=== PATIENT | female | born 1945 | race Caucasian/White ===

== ENCOUNTER 2023-08-02 20:29 | Inpatient (IN) | payer OTHER, SELFPAY ==
[2023-08-02 14:27] VITALS: BMI 18.5
[2023-08-02 14:28] VITALS: BP 127/74
[2023-08-02 14:49] LABS: % Basophils 0.4 % (0-2); % Eosinophils 0.4 % (0-6); % Immature Granulocytes 0.4 % (0-0.5); % Lymphocytes 9.2 % (20.5-51.1); % Monocytes 11.2 % (1.7-9.3); % Neutrophils 78.4 % (42.2-75.2); Absolute Eosinophils 0.1 10^3/uL (0-0.7); Absolute Immature Granulocytes 0.1 10^3/uL (0-0.05); Absolute Monocytes 1.3 10^3/uL (0.1-0.6); Absolute Neutrophils 8.9 10^3/uL (1.4-6.5); Hematocrit 36.1 % (37.0-47.0); Hemoglobin 13.2 g/dL (12.0-16.0); Mean Corp Hgb Conc. 36.6 g/dL (33.0-37.0); Mean Corpuscular Hgb 31.9 pg (27.0-31.0); Mean Corpuscular Volume 87.2 fL (81.0-99.0); Mean Platelet Volume 9.2 fL (7.4-10.4); Nucleated Red Blood Cells % 0 %; Platelet Count 400 10^3/uL (130-400); Red Blood Cell Count 4.14 10^6/uL (4.20-5.40); Red Cell Dist. Width 12.6 % (11.5-14.5); White Blood Cell Count 11.3 10^3/uL (4.8-10.8)
[2023-08-02 15:10] LABS: ALT (SGPT) 12 U/L (0-35); AST (SGOT) 22 U/L (14-36); Alkaline Phosphatase 71 U/L (38-126); Blood Urea Nitrogen 16 mg/dl (7-17); Calcium 9.2 mg/dl (8.4-10.2); Carbon Dioxide 25 mmol/L (22-30); Chloride 93 mmol/L (98-107); Glucose 111 mg/dl (70-99); Lipase 70 U/L (23-300); Potassium 3.3 mmol/L (3.5-5.1); Sodium 126 mmol/L (135-145); Total Bilirubin 1.6 mg/dl (0.2-1.3); Total Protein 6.4 g/dl (6.3-8.2); eGFR > 60.00
--- NOTE | 2023-08-02 15:38 | ED.GENMED ---
History of Present Illness
General
Chief Complaint: Abdominal Pain
Source: patient
Exam Limitations: none
Time Seen by Provider: 08/02/23 15:25
Nursing documentation reviewed up to this point in time: agreed with
Travel History
Have you had any contact with someone who has COVID-19?: No
Do you have any symptoms of coronavirus? Fever > 100 degrees, chills, cough, shortness of breath, sore throat, loss of taste or smell, muscle aches, or headache?: No
History of Present Illness
History of Present Illness:
78-year-old female with past history of A-fib not anticoagulated, hypertension hyperlipidemia presenting to the emergency department today with concerns of lack of bowel movements over the past week and abdominal distention and pain worsening over
the past week. Has had nausea and difficulty tolerating anything by mouth other than some liquids. Denies any chest pain shortness of breath vomiting or changes in urination.
Past History
Past History
ED Past Medical History: Arrthythmia and HTN
ED Past Surgical History: None
Social History
Tobacco: Non-smoker
Alcohol: Occasional
Drug: None
Personal:
Living: with family (lives with son)
Employment: Retired
Family History
Family History: Other (Noncontributory)
Review of Systems
Review of Systems
Allergies reviewed?: Yes
All Other Systems: ROS reviewed and negative except as documented in HPI and ROS
Phy Exam
Physical Exam
Physical Exam:
GENERAL: Alert , in no apparent distress
EYE: pupils equal and reactive
NECK: Supple, no significant adenopathy.
ENT: o/p clr, mmm.
CARDIAC: Regular rate and rhythm .
LUNGS: Clear breath sounds bilaterally, no acute respiratory distress, no wheezes/rales/rhonchi
ABDOMEN: Distended abdomen mild tenderness to palpation throughout.
NEUROLOGICAL: Alert and oriented, no focal neuro deficits
SKIN: Warm and dry, skin intact.
MUSCULOSKELETAL: No edema, well perfused.
PSYCH: Normal and appropriate interaction.
Course
Orders/Labs/Results
Orders:
Orders
08/02/23 14:32
IV Insert/Care/Rem.- Treatment PRN
08/02/23 14:35
Complete Blood Count/With Diff Urgent
Comprehensive Metabolic Panel Urgent
Lipase Urgent
08/02/23 15:37
Urinalysis Reflex To Culture Urgent
0.9% Sodium Chloride 1000 ml [Nss] 1,000 ml IV BOLUS
Iohexol [Omnipaque] See Protocol PO NOW STA
Ondansetron Injectable [Zofran] 4 mg IV NOW STA
08/02/23 15:38
CT Abd/pel W Iv And Oral Contr Urgent
Comment:
Reason For Exam: diffuse abd pain, no bm x1 week
Abnormal Lab Results
08/02/23
14:35
WBC 11.3 H 10^3/uL
(4.8-10.8)
RBC 4.14 L 10^6/uL
(4.20-5.40)
Hct 36.1 L %
(37.0-47.0)
MCH 31.9 H pg
(27.0-31.0)
Abs Immat Gran (auto) 0.1 H 10^3/uL
(0-0.05)
Absolute Neuts (auto) 8.9 H 10^3/uL
(1.4-6.5)
Absolute Lymphs (auto) 1.0 L 10^3/uL
(1.2-3.4)
Absolute Monos (auto) 1.3 H 10^3/uL
(0.1-0.6)
Neutrophils % 78.4 H %
(42.2-75.2)
Lymphocytes % 9.2 L %
(20.5-51.1)
Monocytes % 11.2 H %
(1.7-9.3)
Sodium 126 L mmol/L
(135-145)
Potassium 3.3 L mmol/L
(3.5-5.1)
Chloride 93 L mmol/L
(98-107)
Glucose 111 H mg/dl
(70-99)
Total Bilirubin 1.6 H mg/dl
(0.2-1.3)
08/02/23 14:35
08/02/23 14:35
Vital Signs
Initial and Last Documented VS:
Initial Vital Signs
Temp Pulse Resp BP Pulse Ox
98.0 F 98 16 127/74 98
08/02/23 14:28 08/02/23 14:28 08/02/23 14:28 08/02/23 14:28 08/02/23 14:28
Last Documented Vital Signs
Temp Pulse Resp BP Pulse Ox
98.0 F 98 16 112/59 93
08/02/23 14:28 08/02/23 14:28 08/02/23 14:28 08/02/23 16:00 08/02/23 16:00
MDM/Problems Addressed
MDM/Problems Addressed:
78-year-old female presenting to the emergency department today with concerns of abdominal distention and lack of bowel movement over the past week and ongoing nausea without vomiting. Here patient is generally well-appearing no acute distress but
does have tenderness throughout the abdomen and distended abdomen. Plan for CT scan for further assessment of possible obstruction.
CT scan showing likely early obstruction plan to admit for further monitoring. Patient additionally had low sodium level on labs additionally will be treated as inpatient. Stable throughout ER stay no vomiting.
*Critical Care Note
Total Time (30-74mins, 75-104mins- exclusive of procedures): Not Applicable
ED Attending Note
-
Portions of this chart may have been created with voice recognition software.� Occasional wrong word or��sound alike� substitutions may have occurred due to the inherent limitations of voice recognition software.
Discharge Plan
Departure
Patient Disposition: Admit
Date of Disposition: 08/02/23
Time of Disposition: 19:24
Admit to: Med/Surg
Admit to doctor: Abhishek
Presentation/result/management discussed w/ accepting MD/DO: Hospitalist
Patient with high blood pressure during this ER visit?: No
Condition: Good
Covid-19: Not Applicable
Discharge Problem:
Bowel obstruction, Hyponatremia
Prescriptions:
No Action
metoprolol succinate 100 MG tablet extended release 24 hr
100 mg PO DAILY
cholecalciferol (vitamin D3) 1,000 UNITS tablet
1,000 units PO DAILY
sennosides-docusate sodium 1 TABLET tablet
1 tab PO BID
losartan 25 MG tablet
25 mg PO DAILY
bisacodyl [Fleet Bisacodyl] 37 ML enema
118 ml [place] DAILYPRN PRN (Reason: constipation)
bisacodyl [OneLAX Bisacodyl] 10 MG suppository
10 mg [place] DAILYPRN PRN (Reason: constipation)
aluminum-magnesium hydroxide 30 ML suspension
15 ml PO PRN PRN (Reason: constipation)
mupirocin 1 APPLIC ointment
1 applic topical BID Qty: 1 0RF
rosuvastatin 5 MG tablet
5 mg PO QPM
Patient Comments:
08/22/21-patient said she sill takes this, tried to call [facility] but on lunch [id number]
acetaminophen 325 MG tablet
650 mg PO Q6HPRN PRN (Reason: mild pain/ fever>100.5F) 0RF
oxycodone-acetaminophen 5 MG/325 MG tablet
1 tab PO Q6HPRN PRN (Reason: knee pain) 2 Days Qty: 8 0RF
Referrals:
NONE,* [Active] -
Interventions
Interventions:
*General Assessment Last Done: 08/02/23 14:28
ED- Fall Risk Assessment Last Done: 08/02/23 16:12
YF-Iwfuan-Ymmamctlll Assessment Last Done: 08/02/23 16:12
[2023-08-02] MEDS: ZOFRAN 4 MG IV (15:45)
[2023-08-02] MEDS: OMNIPAQUE 50 ML PO (15:46)
[2023-08-02] MEDS: NSS 1000 IV (15:48)
[2023-08-02 16:00] VITALS: BP 112/59
[2023-08-02 17:00] VITALS: BP 128/57
[2023-08-02 18:00] VITALS: BP 124/67
--- NOTE | 2023-08-02 19:46 | HPS.HSE ---
Family Physician
-
Family Physician: Paulo Mckeon
Chief Complaint
-
lack of BM
History of Present Illness
78F HX Prx AF on , Not on AC, hypertension pow concerns of lack of bowel movements over the past week and abdominal distention and pain worsening over the past week. Has had nausea and difficulty tolerating anything by mouth other than some
liquids. D
Denies vomiting or changes in urination.
Medical History
Past Medical History
Past Medical History: Reports Arrhythmia (Prx AF ), HTN and Hypercholesterolemia
Past Surgical History: Reports None
Social History
Tobacco: Non-smoker
Alcohol: None
Family History
Family History: Not pertinent
Allergies / Home Medications
Allergies reflects when Allergies were last updated in [facility].
Home Medications with original date entered in [facility]
Allergy/Medication List:
Allergies
Allergy/AdvReac Type Severity Reaction Status Date / Time
No Known Allergies Allergy Verified 11/20/21 06:40
Home Medications
cholecalciferol (vitamin D3) 25 mcg (1,000 unit) tablet 1,000 units PO DAILY Supplement 02/17/21
metoprolol succinate 100 mg tablet,extended release 24 hr 100 mg PO DAILY Heart disease/condition 02/17/21
rosuvastatin 5 mg tablet 5 mg PO QPM High cholesterol 08/22/21
acetaminophen 325 mg tablet 650 mg PO Q6HPRN PRN mild pain/ fever>100.5F 08/25/21
escitalopram oxalate 5 mg tablet 5 mg PO DAILY 08/02/23
losartan 100 mg-hydrochlorothiazide 12.5 mg tablet 1 tab PO DAILY 08/02/23
Review of Systems
-
History Source: Other
Constitutional: Reports No Symptoms
EENT: Reports No Symptoms
Respiratory: Reports No Symptoms
Cardiac: Reports No Symptoms
Abdomen/GI: Reports Constipated; Denies Vomiting
: Reports No Symptoms
Musculoskeletal: Reports No Symptoms
Skin: Reports No Symptoms
Neurological: Reports No Symptoms
Endocrine: Reports No Symptoms
Hematologic/Lymphatic: Reports No Symptoms
Psych: Reports No Symptoms
Physical Exam
Vital Signs
Vital Signs
Temp Pulse Resp BP Pulse Ox
98.0 F 98 16 124/67 95
08/02/23 14:28 08/02/23 14:28 08/02/23 14:28 08/02/23 18:00 08/02/23 16:51
Physical Exam
General: Other (see below )
Laboratory Results
-
08/02/23 14:35
08/02/23 14:35
Laboratory Results
Total Bilirubin 1.6 mg/dl (0.2-1.3) H 08/02/23 14:35
AST 22 U/L (14-36) 08/02/23 14:35
ALT 12 U/L (0-35) 08/02/23 14:35
Alkaline Phosphatase 71 U/L (38-126) 08/02/23 14:35
Lipase 70 U/L (23-300) 08/02/23 14:35
Data Reviewed
-
CT Scan: Report Reviewed by me
Lab Data: Labs Reviewed by me
Old Records: Reviewed
Impression/Plan
-
Reviewed VS: unremarkable
PE
Gen: NAD
HEENT: anicteric , moist OM
Neck: supple
Lungs: CTA
Cor: RRR S1 s2
Abdomen: Distended abdomen mild tenderness to palpation throughout.
[employer]: AAO3 NFND
MS: no edema
Psych: appropriate
Data
WCC 11.3
Na 126 -baseline is hi 120s to mid 130s
Pending Ur Osm , Ur Na
K 3.3
Cl 93
nl Cr & nl eGFR
BG 111
TB 1.6 nl ALT & AST
CT Abd/pel W Iv And Oral Contr
New small bowel distention is may be due to a partial or developing obstruction. Oral contrast is present in the left colon. Ileus is possible as well. Transition zone probably in the mid right abdomen in the region of the distal ileum
Mild left hydronephrosis and hydroureter. No radiopaque stone causing obstruction identified. Lack of excretion on delayed imaging. This may be due to an obstructing mass, stricture or nonradiopaque stone.
Mild diverticulosis. Stable
Mild fecal material in the colon. Progressed
Last hospitalist admission: 08/25/2021 - 08/25/2021
PRIMARY DIAGNOSES:
1. Left knee hemarthrosis secondary to anticoagulation with Eliquis.
2. Hyponatremia, euvolemic, with significant pain, possibly due to SIADH
SECONDARY DIAGNOSES:
1. Paroxysmal atrial fibrillation.
2. Essential hypertension.
ASSESSMENT & PLAN
Partial SBO - obstruction plus or minus ileus
Transition zone probably in the mid right abdomen in the region of the distal ileum
- Fleet mineral oil enema x 1
- NPO and IVF
- NFT if persistent vomiting
- IV Dilaudid PRN - hold for sedation
- anti emetics
- PRN analgesia
- GS consult
Mild left hydronephrosis and hydroureter. No radiopaque stone causing obstruction identified
- Urology consult in AM
Asymptomatic Hyponatremia - suspect elements of hypovolemia plus SIADH
prior HX SIADH and Tx with Samsca
- Pending Ur Na, Ur Osm
- s/p 1 L NS at ER - after ER fluid fluid restriction of 48 ounces per day.
- Renal consult in AM - to consider samsca
DVT Px: SCD
Code: Full
IP MS
DVT Px: SCD
Code: Full
IP MS
[2023-08-02] MEDS: DILAUDID 0.25 MG IV (20:41)
[2023-08-02 21:00] VITALS: BP 103/71
[2023-08-02] MEDS: FLEET MINERAL OIL ENEMA 133 ML RECTAL (21:56)
[2023-08-02 23:10] VITALS: BP 126/64
[2023-08-03] MEDS: TUMS 2 TABLET PO ×2 (00:28→11:10)
[2023-08-03] MEDS: ZOFRAN 4 MG IV (03:09)
[2023-08-03 03:11] VITALS: BP 156/76
[2023-08-03 07:00] VITALS: BP 173/89
[2023-08-03 07:21] LABS: Hematocrit 37.3 % (37.0-47.0); Hemoglobin 13.4 g/dL (12.0-16.0); Mean Corp Hgb Conc. 35.9 g/dL (33.0-37.0); Mean Corpuscular Hgb 32.1 pg (27.0-31.0); Mean Corpuscular Volume 89.4 fL (81.0-99.0); Mean Platelet Volume 9.7 fL (7.4-10.4); Platelet Count 374 10^3/uL (130-400); Red Blood Cell Count 4.17 10^6/uL (4.20-5.40); Red Cell Dist. Width 12.2 % (11.5-14.5); White Blood Cell Count 9.2 10^3/uL (4.8-10.8)
[2023-08-03] MEDS: TOPROL XL 100 MG PO (07:28)
[2023-08-03 07:40] LABS: Blood Urea Nitrogen 16 mg/dl (7-17); Carbon Dioxide 22 mmol/L (22-30); Chloride 91 mmol/L (98-107); Estimated Creatinine Clearance 46 ml/min; Glucose 129 mg/dl (70-99); Potassium 3.1 mmol/L (3.5-5.1); Sodium 129 mmol/L (135-145); eGFR > 60.00
[2023-08-03 08:12] LABS: TSH 1.11 uIU/ml (0.47-4.68)
[2023-08-03 08:24] VITALS: BMI 18.5
--- NOTE | 2023-08-03 10:35 | CON.GS ---
Addendum entered and electronically signed by Wesley Kothari MD 08/03/23 10:53:
Son contacted by phone. Pt lives with him at home. He confirmed her history. All questions answered.
Original Note:
Consultation
-
Requesting Provider: Abhishek
Performing Provider: Taye
Reason for Consultation: SBO vs ileus
Medical History
-
Chief Complaint: Abd pain
History of Present Illness:
78F with 1 year hx of chronic constipation and now sudden onset abd pain, diffuse, nonradiating, without exacerbating or relieving factors. She reports she had diarrhea about 1 week ago and took pepto bismol for this. Then around the same time
developed constipation and reports no BM for about a week or 1.5 weeks (she is not a good historian). She does endorse passing flatus though this seems to have stopped yesterday. She has not taken much PO since onset, mostly supplement shakes. She
denies f/c. Denies abd PSH.
Past Medical History
Past Medical History: Arrhythmias (afib, not on AC), HTN and Hypercholesterolemia
Past Surgical History:
Social History
Tobacco: Non-Smoker
Alcohol: None
Drug: None
Family History
Family History: Reviewed & Noncontributory
Allergies / Home Medications
Allergy/AdvReac Type Severity Reaction Status Date / Time
No Known Allergies Allergy Verified 11/20/21 06:40
Medication Instructions Recorded Confirmed Type
cholecalciferol (vitamin D3) 25 1,000 units PO DAILY Supplement 02/17/21 08/02/23 History
mcg (1,000 unit) tablet
metoprolol succinate 100 mg 100 mg PO DAILY Heart 02/17/21 08/02/23 History
tablet,extended release 24 hr disease/condition
rosuvastatin 5 mg tablet 5 mg PO QPM High cholesterol 08/22/21 08/02/23 History
acetaminophen 325 mg tablet 650 mg PO Q6HPRN PRN mild pain/ 08/25/21 08/02/23 Rx
fever>100.5F
escitalopram oxalate 5 mg tablet 5 mg PO DAILY@1200 08/02/23 08/02/23 History
losartan 100 1 tab PO DAILY 08/02/23 08/02/23 History
mg-hydrochlorothiazide 12.5 mg
tablet
Review of Systems
-
A 10 point review of systems was completed, and was negative except as per HPI.
Physical Exam
Vital Signs
Temp Pulse Resp BP Pulse Ox
97.8 F 86 18 173/89 97
08/03/23 07:00 08/03/23 07:28 08/03/23 07:00 08/03/23 07:28 08/03/23 07:00
08/02/23 08/03/23 08/04/23
06:59 06:59 06:59
Actual Weight 45.8 kg
Body Mass Index (BMI) 18.5
Lab Results
08/03/23 06:56
08/03/23 06:56
WBC 9.2 10^3/uL (4.8-10.8) 08/03/23 06:56
Hgb 13.4 g/dL (12.0-16.0) 08/03/23 06:56
Hct 37.3 % (37.0-47.0) 08/03/23 06:56
Plt Count 374 10^3/uL (130-400) 08/03/23 06:56
Abs Immat Gran (auto) 0.1 10^3/uL (0-0.05) H 08/02/23 14:35
Neutrophils % 78.4 % (42.2-75.2) H 08/02/23 14:35
Physical Exam
General: Well Developed and No Apparent Distress
HEENT: Normocephalic and Anicteric
GI: Soft, Non Tender, Non Distended and Incisions (vertical suprapubic scar, well healed)
Skin: Warm and Dry
Psych: Calm
Data Reviewed
-
CT Scan: Image Personally Visualized and interpreted, Report Reviewed by me and Discussed with Patient
Labs: Labs Reviewed by me and Discussed with Patient
Assessment / Plan
-
78F with SBO (possibly 2/2 adhesions) vs ileus (possibly 2/2 electrolyte derangements)
AFVSS, exam benign this am, nt, nd
Leukocytosis normalized
Hyponatremia/hypokalemia/hypochloremia present
CT A/P with diffusely dilated sb loops with PO contrast, possible contrast in descending colon (vs pepto bismol), no clear transition point, no signs of bowel threat or compromise
Plan:
NPO/IVF
If develops n/v, place NGT
F/U KUB for this am ordered
Ambulate
PRN pain meds/antiemetics
No plan for surgical intervention at this time
Correct lytes per Hospitalist
Will follow
[2023-08-03 10:52] VITALS: BMI 18.3
[2023-08-03 11:00] VITALS: BP 159/70
[2023-08-03] MEDS: D5/0.9% with KCL 40 MEQ 1000 IV (11:42)
[2023-08-03 11:45] LABS: Urine Albumin Trace (Neg - Trace); Urine Bilirubin Negative (Negative); Urine Character Slightly Cloudy (Clear); Urine Color Yellow; Urine Glucose Negative (Negative); Urine Ketone 3+ (Negative); Urine Leukocyte 1+ (Negative); Urine Nitrite Positive (Negative); Urine Occult Blood 1+ (Negative); Urine Specific Gravity 1.015 (<1.030); Urine Urobilinogen Negative (Neg - 1+)
[2023-08-03 12:16] LABS: Osmolality Urine 421 mOsm/kg (300-900)
--- NOTE | 2023-08-03 12:21 | W.PN.UPDATE ---
Update Note
Progress Note Update
KUB reviewed. Distention is improved and PO contrast now reaches the right colon. Would allow for bowel rest today and if she continues to improve, would trial CLD tomorrow.
[2023-08-03 12:22] LABS: Urine Squamous Cell 0-2 /LPF (Few)
[2023-08-03 12:23] LABS: Urine Bacteria Many (Negative); Urine Sodium 21 mmol/L (30-90); Urine White Cell 30-40 /HPF (0-5)
[2023-08-03 12:24] LABS: Urine Red Blood Cell 0-2 /HPF (0-2)
--- NOTE | 2023-08-03 12:45 | CON.MD ---
Consultation - Medical
-
Assessment:
Hyponatremia (126 --> 129)
Partial SBO
L hydronephrosis
HTN
Afib
DLD
Plan:
- Na improved after NS infusion 1L yesterday
- uosm and Mary consistent with SIADH + hypvolemia
- TSH wnl
- ok to continue NS with K supplementation
- trend BMPs
- patient instructed to stop drinking beer at home
[2023-08-03 13:09] VITALS: BMI 18.3
--- NOTE | 2023-08-03 13:18 | W.PN.HOSP.TC ---
Today's Communication/Plan
-
IVF
K supplement
Assessment / Plan
Assessment / Plan
Partial SBO - obstruction plus or minus ileus
Transition zone probably in the mid right abdomen in the region of the distal ileum
etiology is uncertain. Pt never had colo and slowly progressing over time raises concern for possible obstructing lesion
- Fleet mineral oil enema x 1
CT abd: �New small bowel distention is may be due to a partial or developing obstruction. Oral contrast is present in the left colon. Ileus is possible as well. Transition zone probably in the mid right abdomen in the region of the distal ileum
Mild left hydronephrosis and hydroureter. No radiopaque stone causing obstruction identified. Lack of excretion on delayed imaging. This may be due to an obstructing mass, stricture or nonradiopaque stone.
Mild diverticulosis. Stable
Mild fecal material in the colon. Progressed
- NPO and IVF
- NFT if persistent vomiting
- IV Dilaudid PRN - hold for sedation
- anti emetics
- PRN analgesia
- GS consult
discussed with Dr. Kothari, consider GI consult if colo felt appropriate. His preference is to continue NPO for now
Mild left hydronephrosis and hydroureter. No radiopaque stone causing obstruction identified
- consider Urology consult
Hypokalemia
3.3-->3.1
will supplement
Asymptomatic Hyponatremia - suspect elements of hypovolemia� plus� SIADH
prior HX SIADH� and Tx with Samsca
- Pending Ur Na, Ur Osm
-continue IVF with K
Na 126-->129
- Renal consult appreciated
DVT Px: SCD
Code: Full
IP MS
Anticipated Discharge: > 48 hours
Subjective/Interval History
-
Date of Service: August 03, 2023
Pt states has been having trouble with bowels for close to a year, developing pain and distention progressively past month, increasing severity past week. Never had colonoscopy
Objective Data
-
Labs:
Laboratory Results
08/03/23
06:56
WBC 9.2
Hgb 13.4
Hct 37.3
Plt Count 374
Sodium 129 L
Potassium 3.1 L
Chloride 91 L
Carbon Dioxide 22
BUN 16
Creatinine 0.7
Glucose 129 H
Calcium 9.0
Vital Signs:
Vital Signs
Temp Pulse Resp BP Pulse Ox
97.4 F 79 18 159/70 97
08/03/23 11:00 08/03/23 11:00 08/03/23 11:00 08/03/23 11:00 08/03/23 11:00
Review of Systems
-
History Source: Patient, Physician (reviewed with Dr. Kothari) and Coordinated Provider
Constitutional: Denies Fever
EENT: Reports No Symptoms Reported
Respiratory: Reports No Symptoms
Cardiac: Reports No Symptoms
Abdomen/GI: Reports Abdominal Pain, Constipated and Bloated
Genitourinary: Reports No Symptoms; Denies Dysuria
Skin: Reports No Symptoms
Neuro: Reports No Symptoms
Physical Exam
-
General: Well Developed, No Apparent Distress, Conversant, Appears Chronically Ill and Cachectic (significant muscle wasting)
HEENT: Normocephalic, Atraumatic and Other (suproclavicular muscle wasting)
Respiratory: Clear to Auscultation (on shallow respirations)
Cardiac: Regular Rhythm and S1/S2
GI: Soft, Tender (diffusely) and Distended; Negative Normal Bowel Sounds (decreased)
Musculoskeletal: No Clubbing, No Cyanosis and Other (muscular atrophy)
Neuro: Awake, Alert and Oriented
--- NOTE | 2023-08-03 14:33 | CM ---
Reviewed chart, met with patient to obtain information for assessment however she was asleep and did not wake up, therefore placed a call to patient's son, Vincent who answered and stated that he could provide information. Patient's son stated that
patient lives with him in a two story single home with 3 steps to enter.
He described patient as independent with all her ALDs, personal care, bathing and dressing. She drives and can get to her appointments and does her own shopping.
Patient's son denied any DME in the home.
She has a prescription plan and she uses [facility] [place] [facility] for all her medications.
Her PCP is Dr. Paulo Mckeon.
She has not had VN services. She has been to [facility] in the past.
Patient's son stated that he is home when he is not at work and that his sister is coming in from out of town to stay with patient once she is out of the hospital. He does not feel that she will have any needs at time of discharge but did admit to
her being a little weaker than normal. Will review therapy notes and make recommendations based on their indications and indications on behalf of medical staff.
Plan: Case management will continue to follow and assist with discharge. Patient's son would like for patient to return home when stable. Will make advisements to patient for post acute care based on the medical recommendations.
[2023-08-03 15:00] VITALS: BP 155/78
[2023-08-03 19:00] VITALS: BP 139/73
[2023-08-03 23:00] VITALS: BP 133/69
[2023-08-04] VITALS (7 sets, daily range): BP systolic 110–172; BP diastolic 60–96; BMI 18.3
[2023-08-04] MEDS: D5/0.9% with KCL 40 MEQ 1000 IV (01:35)
[2023-08-04 07:28] LABS: % Basophils 0.4 % (0-2); % Eosinophils 1.5 % (0-6); % Immature Granulocytes 0.3 % (0-0.5); % Lymphocytes 16.8 % (20.5-51.1); % Monocytes 14.7 % (1.7-9.3); % Neutrophils 66.3 % (42.2-75.2); Absolute Eosinophils 0.1 10^3/uL (0-0.7); Absolute Lymphocytes 1.2 10^3/uL (1.2-3.4); Absolute Monocytes 1.1 10^3/uL (0.1-0.6); Absolute Neutrophils 4.7 10^3/uL (1.4-6.5); Hematocrit 32.3 % (37.0-47.0); Hemoglobin 11.5 g/dL (12.0-16.0); Mean Corp Hgb Conc. 35.6 g/dL (33.0-37.0); Mean Corpuscular Hgb 32.2 pg (27.0-31.0); Mean Corpuscular Volume 90.5 fL (81.0-99.0); Mean Platelet Volume 9.6 fL (7.4-10.4); Nucleated Red Blood Cells % 0 %; Platelet Count 318 10^3/uL (130-400); Red Blood Cell Count 3.57 10^6/uL (4.20-5.40); Red Cell Dist. Width 12.3 % (11.5-14.5); White Blood Cell Count 7.2 10^3/uL (4.8-10.8)
[2023-08-04] MEDS: TOPROL XL 100 MG PO (08:21)
[2023-08-04 08:22] LABS: Blood Urea Nitrogen 14 mg/dl (7-17); Calcium 8.2 mg/dl (8.4-10.2); Carbon Dioxide 26 mmol/L (22-30); Chloride 107 mmol/L (98-107); Estimated Creatinine Clearance 53 ml/min; Glucose 113 mg/dl (70-99); Potassium 4.2 mmol/L (3.5-5.1); Sodium 131 mmol/L (135-145); eGFR > 60.00
--- NOTE | 2023-08-04 09:47 | W.PN.GS2 ---
Addendum entered and electronically signed by Lio Jordan MD 08/04/23 11:02:
abd x ray reviewed. contrast has now progressed completely into colon. there is residual SB dilation which could represent persistent pSBO.
will give dulcolax suppository to help stimulate further evacuation/progression of contrast
will likely benefit from SBFT tomorrow if able to pass contrast
okay for clear liquids for now for comfort
Original Note:
Today's Communication / Plan
-
`
Assessment / Plan
-
Assessment: 78 y/o female with pSBO, prior surgical hx (midline laparotomy), tubal
AFVSS
some subjective/clinical improvement but no return of BMs
Plan: check follow up abdominal xray
okay for clear liquids for now
may need suppository depending on xray bowel/gas pattern and progression of oral contrast
consider SBFT but prior contrast would need to pass
Subjective Data
-
Date of Service: August 04, 2023
pt seen and examined
no flatus/no BM
no nausea
some abdominal pains, improved from presentation but not gone
Objective Data
-
Intake and Output
08/03/23 08/04/23 08/05/23
06:59 06:59 06:59
Intake Total 0 / 0
Output Total 400 / 400
Balance -400 / -400
Intake:
Oral fluids 0 / 0
Output:
Urine, Voided 400 / 400
Other:
Number of approximated MODERATE 2
amounts of urine
Number of approximated LARGE 1
amounts of urine
Number of immeasurable emeses? 2
Vital Signs
Temp Pulse Resp BP Pulse Ox
98.0 F 65 16 141/63 96
08/04/23 07:00 08/04/23 07:00 08/04/23 07:00 08/04/23 07:00 08/04/23 07:00
Lab Results
08/04/23 07:00
08/04/23 07:00
Calcium 8.2 mg/dl (8.4-10.2) L 08/04/23 07:00
Total Bilirubin 1.6 mg/dl (0.2-1.3) H 08/02/23 14:35
AST 22 U/L (14-36) 08/02/23 14:35
ALT 12 U/L (0-35) 08/02/23 14:35
Alkaline Phosphatase 71 U/L (38-126) 08/02/23 14:35
Total Protein 6.4 g/dl (6.3-8.2) 08/02/23 14:35
Albumin 4.0 g/dl (3.5-5.0) 08/02/23 14:35
Physical Exam
-
NAD AAOx3
ABD: soft, not distended, mild TTP LLQ and RLQ but no R/R/G
[2023-08-04] MEDS: DULCOLAX 10 MG RECTAL (12:04)
--- NOTE | 2023-08-04 12:12 | W.PN.NEPH.PH ---
Today's Communication / Plan
-
- continue NS while patient is NPO
- stop HCTZ (and escitalopram) if patient amenable
- nephrology will sign off
Assessment/Plan
-
Assessment:
Hyponatremia (126 --> 129 --> 131)
Partial SBO
L hydronephrosis
HTN
Afib
DLD
Plan:
- Na cotninuing to improve with NS
- uosm and Mary consistent with SIADH + hypvolemia
- TSH wnl
- please continue NS while patient is NPO
- trend BMPs
- patient instructed to stop drinking beer at home
- stop HCTZ and SSRI for homegoing if patient continues to be amenable
Nephrology to sign off
-
-
Date of Service: August 04, 2023
CC / HPI / ROS
-
Chief Complaint:
hyponatremia
History of Present Illness:
hyponatremia
SBO
L hydronephrosis
Review of Systems:
- Cr at baseline
- Na improved to 131
Labs
-
Labs:
WBC 7.2 10^3/uL (4.8-10.8) 08/04/23 07:00
RBC 3.57 10^6/uL (4.20-5.40) L 08/04/23 07:00
Hgb 11.5 g/dL (12.0-16.0) L 08/04/23 07:00
Hct 32.3 % (37.0-47.0) L 08/04/23 07:00
Plt Count 318 10^3/uL (130-400) 08/04/23 07:00
Sodium 131 mmol/L (135-145) L 08/04/23 07:00
Potassium 4.2 mmol/L (3.5-5.1) D 08/04/23 07:00
Chloride 107 mmol/L (98-107) 08/04/23 07:00
Carbon Dioxide 26 mmol/L (22-30) 08/04/23 07:00
BUN 14 mg/dl (7-17) 08/04/23 07:00
Creatinine 0.6 mg/dL (0.6-1.0) 08/04/23 07:00
eGFR > 60.00 08/04/23 07:00
Glucose 113 mg/dl (70-99) H 08/04/23 07:00
Calcium 8.2 mg/dl (8.4-10.2) L 08/04/23 07:00
Albumin 4.0 g/dl (3.5-5.0) 08/02/23 14:35
Physical Exam
-
Vital Signs:
Vital Signs
Temp Pulse Resp BP Pulse Ox
98.0 F 65 16 141/63 96
08/04/23 07:00 08/04/23 07:00 08/04/23 07:00 08/04/23 07:00 08/04/23 07:00
Cardiovascular:: Regular rate and rhythm
Respiratory:: Bilateral: CTA
Lung Excursion:: Normal
Abdomen:: Distended and Soft
Bowel Sounds:: Decreased
Extremity Edema:: None: Bilateral:
Blackwell Catheter: No
--- NOTE | 2023-08-04 13:12 | W.PN.HOSP.TC ---
Today's Communication/Plan
-
adjust IVF
recheck labs and X-Ray
Assessment / Plan
Assessment / Plan
Partial SBO - appears to have lessened
Transition zone probably in the mid right abdomen in the region of the distal ileum
etiology is uncertain. Pt never had colo and slowly progressing over time raises concern for possible obstructing lesion
- Fleet mineral oil enema x 1
CT abd: �New small bowel distention is may be due to a partial or developing obstruction. Oral contrast is present in the left colon. Ileus is possible as well. Transition zone probably in the mid right abdomen in the region of the distal ileum
Mild left hydronephrosis and hydroureter. No radiopaque stone causing obstruction identified. Lack of excretion on delayed imaging. This may be due to an obstructing mass, stricture or nonradiopaque stone.
Mild diverticulosis. Stable
Mild fecal material in the colon. Progressed
-now clear liquids and IVF
- NFT if persistent vomiting
- IV Dilaudid PRN - hold for sedation
- anti emetics
- PRN analgesia
- GS consult, they ordered dulcolax supp
KUB in AM
Mild left hydronephrosis and hydroureter. No radiopaque stone causing obstruction identified
- consider Urology consult
Hypokalemia
3.3-->3.1-->4.2
resolved, will adjust IVF
Asymptomatic Hyponatremia - suspect elements of hypovolemia� plus� SIADH
prior HX SIADH� and Tx with Samsca
- Pending Ur Na, Ur Osm
-continue IVF with K
Na 126-->129-->131
- Renal consult appreciated
DVT Px: SCD
Code: Full
IP MS
Anticipated Discharge: > 48 hours
Subjective/Interval History
-
Date of Service: August 04, 2023
Still with abdominal pain, though somewhat less intense
Objective Data
-
Labs:
Laboratory Results
08/04/23
07:00
WBC 7.2
Hgb 11.5 L
Hct 32.3 L
Plt Count 318
Sodium 131 L
Potassium 4.2 D
Chloride 107
Carbon Dioxide 26
BUN 14
Creatinine 0.6
Glucose 113 H
Calcium 8.2 L
Vital Signs:
Vital Signs
Temp Pulse Resp BP Pulse Ox
97.5 F 61 16 137/61 98
08/04/23 11:00 08/04/23 11:00 08/04/23 11:00 08/04/23 11:00 08/04/23 11:00
I&O
08/03/23 08/04/23 08/05/23
06:59 06:59 06:59
Intake Total 0 / 0
Output Total 400 / 400
Balance -400 / -400
Review of Systems
-
History Source: Patient and Coordinated Provider
Constitutional: Denies Fever
EENT: Reports No Symptoms Reported
Respiratory: Reports No Symptoms
Cardiac: Reports No Symptoms
Abdomen/GI: Reports Abdominal Pain, Constipated and Bloated
Genitourinary: Reports No Symptoms; Denies Dysuria
Skin: Reports No Symptoms
Neuro: Reports No Symptoms
Physical Exam
-
General: Well Developed, No Apparent Distress, Conversant, Appears Chronically Ill and Cachectic (significant muscle wasting)
HEENT: Normocephalic, Atraumatic and Other (suproclavicular muscle wasting)
Respiratory: Clear to Auscultation (on shallow respirations)
Cardiac: Regular Rhythm and S1/S2
GI: Soft, Normal Bowel Sounds (BS significantly more active), Tender (less tender and now generlly in LLQ) and Distended (has lessened)
Musculoskeletal: No Clubbing, No Cyanosis and Other (muscular atrophy)
Neuro: Awake, Alert and Oriented
[2023-08-04] MEDS: D5/0.9% with KCL 40 MEQ IV (13:31)
[2023-08-04] MEDS: NSS with KCL 20 MEQ 1000 IV (14:27)
[2023-08-04] MEDS: TUMS 2 TABLET PO (19:26)
[2023-08-04] MEDS: DILAUDID 0.25 MG IV (20:26)
--- NOTE | 2023-08-04 22:10 | PTCARENOTE ---
Blood pressure elevated and pt complained of unrelieved 6/10 pain throughout abd, primarily in LLQ. OIL PIPE INSPECTOR made aware, new order provided, see MAR. Pt vomited small amount, zofran provided, see MAR.
[2023-08-04] MEDS: DILAUDID 0.5 MG IV (22:30)
[2023-08-04] MEDS: ZOFRAN 4 MG IV (22:31)
[2023-08-05] MEDS: NSS with KCL 20 MEQ 1000 IV ×2 (02:47→16:04)
[2023-08-05 03:35] VITALS: BP 151/80
[2023-08-05 07:00] VITALS: BP 141/82
[2023-08-05 07:37] LABS: % Basophils 0.5 % (0-2); % Eosinophils 0.5 % (0-6); % Immature Granulocytes 0.5 % (0-0.5); % Lymphocytes 17.3 % (20.5-51.1); % Monocytes 15.5 % (1.7-9.3); % Neutrophils 65.7 % (42.2-75.2); Absolute Lymphocytes 1.2 10^3/uL (1.2-3.4); Absolute Neutrophils 4.4 10^3/uL (1.4-6.5); Hematocrit 35.1 % (37.0-47.0); Hemoglobin 12.3 g/dL (12.0-16.0); Mean Corpuscular Volume 91.4 fL (81.0-99.0); Nucleated Red Blood Cells % 0 %; Platelet Count 341 10^3/uL (130-400); Red Blood Cell Count 3.84 10^6/uL (4.20-5.40); Red Cell Dist. Width 12.7 % (11.5-14.5); White Blood Cell Count 6.6 10^3/uL (4.8-10.8)
[2023-08-05 08:00] VITALS: BMI 18.3
[2023-08-05 08:10] LABS: Blood Urea Nitrogen 15 mg/dl (7-17); Calcium 8.3 mg/dl (8.4-10.2); Carbon Dioxide 21 mmol/L (22-30); Chloride 105 mmol/L (98-107); Estimated Creatinine Clearance 53 ml/min; Glucose 99 mg/dl (70-99); Potassium 4.6 mmol/L (3.5-5.1); Sodium 135 mmol/L (135-145); eGFR > 60.00
--- NOTE | 2023-08-05 08:40 | W.PN.GS2 ---
Today's Communication / Plan
-
KUB
Assessment / Plan
-
Assessment: 78 y/o female with pSBO, prior surgical hx (midline laparotomy), tubal
AFVSS
Passing BMs, but also small emesis overnight with unclear circumstances
Plan: check follow up abdominal xray, if contrast is cleared and sb distention remains, would proceed with SBFT
If distention is improved, would trial FLD
may need suppository depending on xray bowel/gas pattern and progression of oral contrast
Subjective Data
-
Date of Service: August 05, 2023
AFVSS, reports pain totally resolved, denies nausea but there is a nursing report of a 'small emesis' overnight - no firther info available about this episode. She continues to pass BMs and reports relief after the BMs
Objective Data
-
Intake and Output
08/04/23 08/05/23 08/06/23
06:59 06:59 06:59
Intake Total 0 / 0 1919
Output Total 400 / 400 300 / 300
Balance -400 / -400 1620 / 1620
Intake:
Oral fluids 0 / 0
IV fluids (Total) 1919
Output:
Emesis 200 / 200
Urine, Voided 400 / 400 100 / 100
Other:
Number of approximated SMALL 2
amounts of urine
Number of approximated MODERATE 2 1
amounts of urine
Number of approximated LARGE 1
amounts of urine
Number of immeasurable emeses? 1
Number of unmeasured liquid
stools
Rectum 1
Vital Signs
Temp Pulse Resp BP Pulse Ox
97.7 F 80 17 141/82 96
08/05/23 07:00 08/05/23 07:00 08/05/23 07:00 08/05/23 07:00 08/05/23 07:00
Lab Results
08/05/23 06:58
08/05/23 06:58
Calcium 8.3 mg/dl (8.4-10.2) L 08/05/23 06:58
Total Bilirubin 1.6 mg/dl (0.2-1.3) H 08/02/23 14:35
AST 22 U/L (14-36) 08/02/23 14:35
ALT 12 U/L (0-35) 08/02/23 14:35
Alkaline Phosphatase 71 U/L (38-126) 08/02/23 14:35
Total Protein 6.4 g/dl (6.3-8.2) 08/02/23 14:35
Albumin 4.0 g/dl (3.5-5.0) 08/02/23 14:35
Physical Exam
-
Gen: NAD
Abd: soft, nt, nd
[2023-08-05] MEDS: TOPROL XL 100 MG PO (09:33)
[2023-08-05] MEDS: DILAUDID 0.25 MG IV (09:34)
--- NOTE | 2023-08-05 10:00 | W.PN.UPDATE ---
Update Note
Progress Note Update
KUB reviewed. SB remains distended however there remains PO contrast in the colon which would obscure a SBFT study. Will stay on CLD today and obtain KUB in the am to follow contrast.
[2023-08-05 11:00] VITALS: BP 113/58
--- NOTE | 2023-08-05 13:14 | CM ---
Reviewed chart, functionally patient appears to be at baseline level. Family supportive and would like for patient to return home when patient is medically stable.
Plan: Case management will continue to follow and assist with discharge planning. Tentative plan is for patient to return home when cleared.
--- NOTE | 2023-08-05 13:27 | W.PN.HOSP.TC ---
Today's Communication/Plan
-
continue Clear Liquids as per surgery
Assessment / Plan
Assessment / Plan
Partial SBO - clinically appears to have resolved
CT abd: �New small bowel distention is may be due to a partial or developing obstruction. Oral contrast is present in the left colon. Ileus is possible as well. Transition zone probably in the mid right abdomen in the region of the distal ileum
Mild left hydronephrosis and hydroureter. No radiopaque stone causing obstruction identified. Lack of excretion on delayed imaging. This may be due to an obstructing mass, stricture or nonradiopaque stone.
Mild diverticulosis. Stable
Mild fecal material in the colon. Progressed
08/05 KUB: 1. Dilation of small bowel, with relative decompression of the colon, suggestive of partial small bowel obstruction.
2. Oral contrast is seen to the level of the sigmoid colon, excluding complete intestinal obstruction.
-now clear liquids and IVF
- NFT if persistent vomiting
- IV Dilaudid PRN - hold for sedation
- anti emetics
- PRN analgesia
- Input of Surg appreciated, would like to continue on Clear Liquids for now
KUB in AM
Mild left hydronephrosis and hydroureter. No radiopaque stone causing obstruction identified
- consider Urology consult
Hypokalemia
3.3-->3.1-->4.2-->4.6
resolved, will adjust IVF
Asymptomatic Hyponatremia - suspect elements of hypovolemia� plus� SIADH, resolved
prior HX SIADH� and Tx with Samsca
- Pending Ur Na, Ur Osm
-continue IVF with K
Na 126-->129-->131-->135
- Renal consult appreciated
DVT Px: SCD
Code: Full
IP MS
Anticipated Discharge: 24 - 48 hours
Subjective/Interval History
-
Date of Service: August 05, 2023
Abdominal pain has significantly reduced, had small BM and is passing a limited amount of flatus
Objective Data
-
Labs:
Laboratory Results
08/05/23
06:58
WBC 6.6
Hgb 12.3
Hct 35.1 L
Plt Count 341
Sodium 135
Potassium 4.6
Chloride 105
Carbon Dioxide 21 L
BUN 15
Creatinine 0.5 L
Glucose 99
Calcium 8.3 L
Vital Signs:
Vital Signs
Temp Pulse Resp BP Pulse Ox
98.0 F 74 16 113/58 96
08/05/23 11:00 08/05/23 11:00 08/05/23 11:00 08/05/23 11:00 08/05/23 11:00
I&O
08/04/23 08/05/23 08/06/23
06:59 06:59 06:59
Intake Total 0 / 0 1920 / 1920
Output Total 400 / 400 300 / 300
Balance -400 / -400 1620 / 1620
Review of Systems
-
History Source: Patient and Coordinated Provider
Constitutional: Denies Fever
EENT: Reports No Symptoms Reported
Respiratory: Reports No Symptoms
Cardiac: Reports No Symptoms
Abdomen/GI: Reports Abdominal Pain (resolved), Constipated and Bloated (less pronounced)
Genitourinary: Reports No Symptoms; Denies Dysuria
Skin: Reports No Symptoms
Neuro: Reports No Symptoms
Physical Exam
-
General: Well Developed, No Apparent Distress, Conversant, Appears Chronically Ill and Cachectic (significant muscle wasting)
HEENT: Normocephalic, Atraumatic and Other (suproclavicular muscle wasting)
Respiratory: Clear to Auscultation (on shallow respirations)
Cardiac: Regular Rhythm and S1/S2
GI: Soft, Normal Bowel Sounds (BS significantly more active, now normal), Tender (resolved) and Distended (resolved)
Musculoskeletal: No Clubbing, No Cyanosis and Other (muscular atrophy)
Neuro: Awake, Alert and Oriented
--- NOTE | 2023-08-05 14:57 | PN.CDI ---
CDI
- -
CDI:
Physician Documentation Request
Admit Date: 08/02/23 20:29
Dear Doctor Linda,
Clinical Indicators:
Patient admitted with partial SBO.
UA:
08/03/23
11:22
Urine Clarity Slightly cloudy
Urine Ketones 3+ A
Ur Occult Blood Reflex 1+ A
Urine Nitrite (Reflex) Positive A
Leukocyte Esterase Rfl 1+ A
Urine WBC (Reflex) 30-40 A
Urine Bacteria (Reflex) Many A
Urine culture:
08/03/23 11:22 Urine Culture - Final
Urine Escherichia coli
Based on the above, could you clarify in the progress notes, the appropriate diagnosis, if significant, that supports the above abnormalities and additional evaluation, monitoring and/or treatment rendered:
UTI
Asymptomatic bacteruria
Other, please specify
Use of terms such as suspected, likely, concern for, or probable (associated with a specific diagnosis that is being evaluated, monitored, or treated as if it exists) are acceptable and can be coded in the inpatient setting, when documented at the
time of discharge.
Thank you,
DRU Garcia RN
CDI Specialist
available via tiger text
Please use your independent medical judgment in providing your response.
[2023-08-05 15:00] VITALS: BP 121/62
[2023-08-05 19:30] VITALS: BP 124/65
[2023-08-05] MEDS: TUMS 2 TABLET PO (20:29)
[2023-08-05 23:50] VITALS: BP 129/78
[2023-08-06 03:35] VITALS: BP 140/85
--- NOTE | 2023-08-06 03:39 | PTCARENOTE ---
Pt setting off bed alarm. Pt agitated and stating 'you are holding me hostage'. Pt asked why she isnt allowed out of bed. This RN stated that patient can get out of bed w/ staff supervision and that she is unsteady on her feet. Pt asked orientation
questions, pt aaox3 but forgetful. Pt called daughter and left voicemail stating 'they are holding me hostage'. Pt also paranoid that staff is going to steal her Ipad. JENA Hephziba notified, no new orders. VSS, no c/o pain. LIQUOR BLENDER asked if pt
urinating okay. Pt stated she does not have to urinate. Bladder scanned for 281mls. Able to calm pt down. Bed alarm on. Will continue plan of care.
[2023-08-06 07:00] VITALS: BP 106/79
[2023-08-06 07:17] LABS: % Basophils 0.4 % (0-2); % Eosinophils 0.8 % (0-6); % Immature Granulocytes 0.4 % (0-0.5); % Lymphocytes 17.7 % (20.5-51.1); % Monocytes 11.4 % (1.7-9.3); % Neutrophils 69.3 % (42.2-75.2); Absolute Eosinophils 0.1 10^3/uL (0-0.7); Absolute Lymphocytes 1.3 10^3/uL (1.2-3.4); Absolute Monocytes 0.8 10^3/uL (0.1-0.6); Hematocrit 34.9 % (37.0-47.0); Hemoglobin 12.4 g/dL (12.0-16.0); Mean Corp Hgb Conc. 35.5 g/dL (33.0-37.0); Mean Corpuscular Hgb 31.9 pg (27.0-31.0); Mean Corpuscular Volume 89.7 fL (81.0-99.0); Nucleated Red Blood Cells % 0 %; Platelet Count 375 10^3/uL (130-400); Red Blood Cell Count 3.89 10^6/uL (4.20-5.40); Red Cell Dist. Width 12.8 % (11.5-14.5); White Blood Cell Count 7.2 10^3/uL (4.8-10.8)
[2023-08-06 07:41] LABS: Blood Urea Nitrogen 13 mg/dl (7-17); Calcium 8.5 mg/dl (8.4-10.2); Carbon Dioxide 16 mmol/L (22-30); Chloride 110 mmol/L (98-107); Estimated Creatinine Clearance 53 ml/min; Glucose 95 mg/dl (70-99); Potassium 4.5 mmol/L (3.5-5.1); Sodium 134 mmol/L (135-145); eGFR > 60.00
[2023-08-06 08:00] VITALS: BMI 18.3
[2023-08-06] MEDS: TOPROL XL 100 MG PO (08:19)
[2023-08-06] MEDS: ROCEPHIN 1000 MG IV (10:32)
[2023-08-06] MEDS: STERILE WATER FOR INJECTION 10 ML IV (10:32)
[2023-08-06] MEDS: TUMS 2 TABLET PO ×2 (10:40→20:15)
--- NOTE | 2023-08-06 10:56 | PTCARENOTE ---
pt HR elevated and irregular. attending notified HR ranging from 120's-140's, HX AFIB not on AC. Pt unclear as to how long she has been off eliquis, pt reports she sees Dr. Castillo out pt. Attending at bedside, EKG obtained , cardioligy consult for
Afib RVR
[2023-08-06 11:00] VITALS: BP 109/62
--- NOTE | 2023-08-06 11:11 | PTCARENOTE ---
reaching out to attending for PRN for rapid afib while cardiology consult is pending. pt's HR 140 at rest with increased to 160's, irregular. Pt offers no complaints
--- NOTE | 2023-08-06 11:21 | W.PN.HOSP.TC ---
Today's Communication/Plan
-
adjust IVF
Cardio consult
advance diet
Assessment / Plan
Assessment / Plan
Partial SBO - clinically appears to have resolved, though X-Ray continues to show persistent SBO. Discussed with Dr. Kothari, plan to advance diet and follow
CT abd: �New small bowel distention is may be due to a partial or developing obstruction. Oral contrast is present in the left colon. Ileus is possible as well. Transition zone probably in the mid right abdomen in the region of the distal ileum
Mild left hydronephrosis and hydroureter. No radiopaque stone causing obstruction identified. Lack of excretion on delayed imaging. This may be due to an obstructing mass, stricture or nonradiopaque stone.
Mild diverticulosis. Stable
Mild fecal material in the colon. Progressed
08/05 KUB: 1. Dilation of small bowel, with relative decompression of the colon, suggestive of partial small bowel obstruction.
2. Oral contrast is seen to the level of the sigmoid colon, excluding complete intestinal obstruction.
08/06 KUB Persistent mild small bowel dilatation.
Oral contrast from recent CT again seen in large bowel, without significant change.
-now clear liquids, surg plans to advance to LRD and slow IVF
- IV Dilaudid PRN - hold for sedation
- anti emetics
- PRN analgesia
Hx of Paroxysmal Atrial Fibrillation
pt was in NSR, today she went into A.Fib with rvr. She goes to the [facility], though admits not seeing in a while. Case reviewed with him, consult placed, he will see
Mild left hydronephrosis and hydroureter. No radiopaque stone causing obstruction identified
- consider Urology consult
UA showed bact with WBC, though pt was totally asymptomatic. It is unclear if this is simply asymptomatic colonization vs low level UTI. At this point would go ahead and treat, as the E.Coli is pansensitive, will order short course of Rocephin
Hypokalemia
3.3-->3.1-->4.2-->4.6
resolved, though now with mild acidosis, will adjust IVF
Asymptomatic Hyponatremia - suspect elements of hypovolemia� plus� SIADH, resolved
prior HX SIADH� and Tx with Samsca
- Pending Ur Na, Ur Osm
-continue IVF with K
Na 126-->129-->131-->135
- Renal consult appreciated
DVT Px: SCD
Code: Full
IP MS
complex situation
Anticipated Discharge: > 48 hours
Subjective/Interval History
-
Date of Service: August 06, 2023
passing some flatus and stool as per pt
Objective Data
-
Labs:
Laboratory Results
08/06/23
06:27
WBC 7.2
Hgb 12.4
Hct 34.9 L
Plt Count 375
Sodium 134 L
Potassium 4.5
Chloride 110 H
Carbon Dioxide 16 L
BUN 13
Creatinine 0.5 L
Glucose 95
Calcium 8.5
Vital Signs:
Vital Signs
Temp Pulse Resp BP Pulse Ox
97.7 F 70 18 109/62 95
08/06/23 11:00 08/06/23 11:00 08/06/23 11:00 08/06/23 11:00 08/06/23 11:00
I&O
08/05/23 08/06/23 08/07/23
06:59 06:59 06:59
Intake Total 192 / 1919 390 / 390
Output Total 300 / 300
Balance 1620 / 1620 390 / 390
Review of Systems
-
History Source: Patient, Physician (reviewed with Dr. Kothari) and Coordinated Provider
Constitutional: Denies Fever
EENT: Reports No Symptoms Reported
Respiratory: Reports No Symptoms
Cardiac: Reports No Symptoms; Denies Chest Pain or Palpitations
Abdomen/GI: Reports Abdominal Pain (minimal, essentially resolved) and Constipated (only small amount of stool and glatus being passed); Denies Nausea or Vomiting
Genitourinary: Denies Dysuria, Frequency or Flank Pain
Physical Exam
-
General: Well Developed, Well Nourished and No Apparent Distress
HEENT: Normocephalic, Atraumatic and Moist Mucous Membranes
Respiratory: Clear to Auscultation; Negative Wheezes, Rales or Rhonchi
Cardiac: Regular Rhythm and S1/S2
GI: Soft, Nontender, Nondistended and Normal Bowel Sounds
Genito-urinary: No Costovertebral Tender
Musculoskeletal: No Clubbing, No Cyanosis and No Edema
Neuro: Awake, Alert and Oriented
--- NOTE | 2023-08-06 11:33 | CON.CAR ---
Addendum entered and electronically signed by Alexis Castillo MD 08/06/23 12:19:
78 yo female with PMH of paroxysmal A fib, HTN admitted with SBO. A fib has recurred with RVR in that setting. She feels palps. No chest pain. Exam with irregular rhythm, no murmurs, no edema. Tele: A fib with RVR.
Start diltiazem drip. Continue Toprol XL.
CHADS2-VASC = 4. Will start eliquis 2.5mg bid if no procedures planned (dosed for age/weight).
Original Note:
Consultation
Consultation Request
Date/Time Consultation Requested: 08/06/23
Date/Time Consultation Performed: 08/06/23
Requesting Provider: Dr. Mckeon
Performing Provider: Danielle BELLA for Dr. Castillo
Reason for Consultation: AFIB with RVR
Medical History
-
Chief Complaint: abdominal pain
History of Present Illness:
78 y/o female with hypertension, PAF (stopped Eliquis due to left knee hemiarthrosis), hypertension, elevated platelets, hyponatremia, and anxiety who presented with abdominal pain, and no recent BM and is seen to have small bowel obstruction. Also
with hyponatremia and hypokalemia (improved). We are consulted since she now has afib with RVR. She is not symptomatic and BP is stable.
Past Medical History
Past Medical History: Arrhythmias, HTN and Other (as above)
Social History
Tobacco: Non-Smoker
Family History
Family History: Reviewed & Not Pertinent
Allergies / Home Medications
Allergy/AdvReac Type Severity Reaction Status Date / Time
No Known Allergies Allergy Verified 11/20/21 06:40
Medication Instructions Recorded Confirmed Type
cholecalciferol (vitamin D3) 25 1,000 units PO DAILY Supplement 02/17/21 08/02/23 History
mcg (1,000 unit) tablet
metoprolol succinate 100 mg 100 mg PO DAILY Heart 02/17/21 08/02/23 History
tablet,extended release 24 hr disease/condition
rosuvastatin 5 mg tablet 5 mg PO QPM High cholesterol 08/22/21 08/02/23 History
acetaminophen 325 mg tablet 650 mg PO Q6HPRN PRN mild pain/ 08/25/21 08/02/23 Rx
fever>100.5F
escitalopram oxalate 5 mg tablet 5 mg PO DAILY@1200 Depression 08/02/23 08/02/23 History
losartan 100 1 tab PO DAILY Blood Pressure 08/02/23 08/02/23 History
mg-hydrochlorothiazide 12.5 mg
tablet
Review of Systems
-
History Source: Patient
All other systems: Negative unless noted
Abdomen/GI: Abdominal Pain and Constipated
Physical Exam
Vital Signs
Temp Pulse Resp BP Pulse Ox
97.7 F 70 18 109/62 95
08/06/23 11:00 08/06/23 11:00 08/06/23 11:00 08/06/23 11:00 08/06/23 11:00
Lab Results
08/06/23 06:27
08/06/23 06:27
Physical Exam
General: Well Developed, Well Nourished and No Apparent Distress
HEENT: Normocephalic and Anicteric
Respiratory: Clear and Non Labored Respirations
Cardiac: Irregular Rhythm
Skin: Warm and Dry
Neuro: AO x 3
Psych: Calm
Impression / Plan
-
SBO:
-management per primary/surgery
-so far has been conservative management
AFIB with RVR, paroxysmal:
-continue metoprolol
-add diltiazem drip for now- requires intensive monitoring
-[id number] score is 4 for female, age, HTN- resume Eliquis at 2.5 mg PO BID when clear will not need procedures (age and weight)
HTN:
-monitor with addition of diltiazem
Data Reviewed
-
EKG: Tracing Personally Visualized and interpreted (AFIB with RVR 128)
Radiology: Report Reviewed by me (Abdominal XR: Persistent mild small bowel dilatation.)
Medical Tests (Nuc Med, Echo etc): Report Reviewed by me (echo 02/17/21)
Labs: Labs Reviewed by me
[2023-08-06] MEDS: CARDIZEM 10 MG IV (11:43)
[2023-08-06] MEDS: CARDIZEM 125 IV (11:53)
--- NOTE | 2023-08-06 11:56 | W.PN.GS2 ---
Addendum entered and electronically signed by Wesley Kothari MD 08/06/23 12:04:
I saw and examined the patient.
The Packaging Engineer's note was reviewed and I agree with the note.
Comment: Feels improved, passing flatus. Sundowning last night. Sleep hygiene education provided. XR today with improved sb distention, contrast remains in the colon which would compromise SBFT. Considering her clinical improvement, will attempt to
adv diet and monitor her tolerance. Rpt KUB tomorrow if any issues with LRD. Discussed UTI with Hospitalist, their team will treat.
Original Note:
Today's Communication / Plan
-
Advance diet
Assessment / Plan
-
Assessment: 78 y/o female with pSBO, prior surgical hx (midline laparotomy), tubal
Afebrile, afib episode this am
Passing flatus, bm's yesterday
Discussed urine cx with attending, now on abx
XR stable from previous, contrast still within the colon and will therefore be unable to proceed with a SBFT at this time
Plan:
Start LRD and follow
Repeat xr imaging if does not continue to improve
Subjective Data
-
Date of Service: August 06, 2023
Patient seen and examined at bedside. Reports she is passing flatus but denies bm today. Agitated overnight, she recalls some of these events and is worried it will happen again. Denies abd pain. Denies n/v.
Objective Data
-
Intake and Output
08/05/23 08/06/23 08/07/23
06:59 06:59 06:59
Intake Total 1919 390 / 390
Output Total 300 / 300
Balance 1620 / 1620 390 / 390
Intake:
Oral fluids 390 / 390
IV fluids (Total) 1919
Output:
Emesis 200 / 200
Urine, Voided 100 / 100
Other:
Number of approximated SMALL 2 4
amounts of urine
Number of approximated MODERATE 1 1
amounts of urine
Number of immeasurable emeses? 1
Number of unmeasured liquid
stools
Rectum 1
Vital Signs
Temp Pulse Resp BP Pulse Ox
97.7 F 70 18 109/62 95
08/06/23 11:00 08/06/23 11:00 08/06/23 11:00 08/06/23 11:00 08/06/23 11:00
Lab Results
08/06/23 06:27
08/06/23 06:27
Calcium 8.5 mg/dl (8.4-10.2) 08/06/23 06:27
Total Bilirubin 1.6 mg/dl (0.2-1.3) H 08/02/23 14:35
AST 22 U/L (14-36) 08/02/23 14:35
ALT 12 U/L (0-35) 08/02/23 14:35
Alkaline Phosphatase 71 U/L (38-126) 08/02/23 14:35
Total Protein 6.4 g/dl (6.3-8.2) 08/02/23 14:35
Albumin 4.0 g/dl (3.5-5.0) 08/02/23 14:35
Physical Exam
-
Gen: NAD
Abd: soft, nt, nd
[2023-08-06] MEDS: SODIUM BICARBONATE 1150 MEQ IV (12:50)
[2023-08-06 14:53] VITALS: BP 102/50
--- NOTE | 2023-08-06 15:54 | CM ---
Patient seen at bedside. Patient states that she is planning to go home with her children's assistance, and does not feel that she needs VN supports. Patient completed IMM and signed form placed on chart. CM will continue to follow for discharge
planning needs.
Plan;home with no needs anticipated
[2023-08-06 19:25] VITALS: BP 114/86
[2023-08-06 23:30] VITALS: BP 121/78
[2023-08-07] VITALS (8 sets, daily range): BP systolic 103–133; BP diastolic 64–81; PULSE 123–133; O2SAT 96–97
[2023-08-07] MEDS: CARDIZEM 125 IV (06:34)
[2023-08-07 06:47] LABS: Hematocrit 32.1 % (37.0-47.0); Hemoglobin 11.8 g/dL (12.0-16.0); Mean Corp Hgb Conc. 36.8 g/dL (33.0-37.0); Mean Corpuscular Hgb 32.2 pg (27.0-31.0); Mean Corpuscular Volume 87.5 fL (81.0-99.0); Mean Platelet Volume 10.3 fL (7.4-10.4); Platelet Count 314 10^3/uL (130-400); Red Blood Cell Count 3.67 10^6/uL (4.20-5.40); Red Cell Dist. Width 12.6 % (11.5-14.5); White Blood Cell Count 8.9 10^3/uL (4.8-10.8)
[2023-08-07 07:10] LABS: Blood Urea Nitrogen 15 mg/dl (7-17); Calcium 8.6 mg/dl (8.4-10.2); Carbon Dioxide 23 mmol/L (22-30); Chloride 101 mmol/L (98-107); Estimated Creatinine Clearance 53 ml/min; Glucose 115 mg/dl (70-99); Potassium 3.6 mmol/L (3.5-5.1); Sodium 131 mmol/L (135-145); eGFR > 60.00
[2023-08-07] MEDS: SODIUM BICARBONATE 1150 MEQ IV (07:56)
[2023-08-07] MEDS: TOPROL XL 100 MG PO (07:57)
[2023-08-07] MEDS: STERILE WATER FOR INJECTION 10 ML IV (07:58)
[2023-08-07] MEDS: ROCEPHIN 1000 MG IV (07:58)
--- NOTE | 2023-08-07 09:40 | W.PN.HOSP.TC ---
Today's Communication/Plan
-
PT/OT consult
Diet advanced as per Gen Surg and though pt has not had significant evacuation, she is otherwise tolerating diet
Cardio consulted regarding A.Fib with rvr
adjust IVF and follow BMP
Assessment / Plan
Assessment / Plan
#1 Partial SBO - clinically appears to have resolved, though X-Ray continues to show persistent SBO. Discussed with Dr. Kothari, advanced diet and follow, which she appears to be tolerating. Await decision from Gen Surg as to their further plans.
CT abd: �New small bowel distention is may be due to a partial or developing obstruction. Oral contrast is present in the left colon. Ileus is possible as well. Transition zone probably in the mid right abdomen in the region of the distal ileum
Mild left hydronephrosis and hydroureter. No radiopaque stone causing obstruction identified. Lack of excretion on delayed imaging. This may be due to an obstructing mass, stricture or nonradiopaque stone.
Mild diverticulosis. Stable
Mild fecal material in the colon. Progressed
08/05 KUB: 1. Dilation of small bowel, with relative decompression of the colon, suggestive of partial small bowel obstruction.
2. Oral contrast is seen to the level of the sigmoid colon, excluding complete intestinal obstruction.
08/06 KUB Persistent mild small bowel dilatation.
Oral contrast from recent CT again seen in large bowel, without significant change.
-now surg advanced to LRD and slowed IVF
- IV Dilaudid PRN - hold for sedation
- anti emetics
- PRN analgesia
#2 Hx of Paroxysmal Atrial Fibrillation:
pt was in NSR, 08/06 she went into A.Fib with rvr. She goes to the [facility], though admits not seeing in a while. Case reviewed with him, consult placed, input of cardio appreciated. Remains in A.Fib with HR 110-130 on cardizem drip and Toprol XL
100 qd
Mild left hydronephrosis and hydroureter. No radiopaque stone causing obstruction identified
- consider Urology consult
UA showed bact with WBC, though pt was totally asymptomatic. It is unclear if this is simply asymptomatic colonization vs low level UTI. At this point would go ahead and treat, as the E.Coli is pansensitive, will order short course of Rocephin
Hypokalemia
3.3-->3.1-->4.2-->4.6-->4.5-->3.6
resolved, though now then with mild acidosis, adjusted IVF, acidosis resolved (CO2 16-->23)
Asymptomatic Hyponatremia - suspect elements of hypovolemia� plus� SIADH, resolved
prior HX SIADH� and Tx with Samsca
Na 126-->129-->131-->135-->134-->131
- Renal consult appreciated, signed off 08/04
DVT Px: SCD
Code: Full
IP MS
complex situation
Anticipated Discharge: 24 - 48 hours
Subjective/Interval History
-
Date of Service: August 07, 2023
Has passed small amount of stool and flatus
Objective Data
-
Labs:
Laboratory Results
08/07/23
06:23
WBC 8.9
Hgb 11.8 L
Hct 32.1 L
Plt Count 314
Sodium 131 L
Potassium 3.6
Chloride 101
Carbon Dioxide 23
BUN 15
Creatinine 0.5 L
Glucose 115 H
Calcium 8.6
Vital Signs:
Vital Signs
Temp Pulse Resp BP Pulse Ox
98.0 F 120 16 113/77 96
08/07/23 07:30 08/07/23 07:57 08/07/23 07:30 08/07/23 07:30 08/07/23 07:30
I&O
08/06/23 08/07/23 08/08/23
06:59 06:59 06:59
Intake Total 390 / 390 1230 / 1230
Balance 390 / 390 1230 / 1230
Review of Systems
-
History Source: Patient, Physician (reviewed with Dr. Kothari 08/[address] Castillo 08/06) and Coordinated Provider
Constitutional: Denies Fever
EENT: Reports No Symptoms Reported
Respiratory: Reports No Symptoms
Cardiac: Reports No Symptoms; Denies Chest Pain or Palpitations
Abdomen/GI: Reports Abdominal Pain (minimal, essentially resolved) and Constipated (only small amount of stool and flatus being passed); Denies Nausea or Vomiting
Genitourinary: Denies Dysuria, Frequency or Flank Pain
Neuro: Reports No Symptoms
Physical Exam
-
General: Well Developed, Well Nourished and No Apparent Distress
HEENT: Normocephalic, Atraumatic and Moist Mucous Membranes
Respiratory: Clear to Auscultation; Negative Wheezes, Rales or Rhonchi
Cardiac: Regular Rhythm and S1/S2
GI: Soft, Nontender, Nondistended and Normal Bowel Sounds
Genito-urinary: No Costovertebral Tender
Musculoskeletal: No Clubbing, No Cyanosis and No Edema
Neuro: Awake, Alert and Oriented
[2023-08-07] MEDS: MIRALAX 17 GRAMS PO (10:13)
[2023-08-07] MEDS: D5/0.45%NSS with KCL 20 MEQ 1000 IV (10:14)
--- NOTE | 2023-08-07 11:14 | W.PN.GS2 ---
Addendum entered and electronically signed by Wesley Kothari MD 08/07/23 12:23:
I saw and examined the patient.
The [employer]ting [employer] Operator's note was reviewed and I agree with the note.
Comment: Enjoyed her cheerios this morning, no issues with LRD. Abd soft, nt, nd. No plans for surgical intervention, OK for DC from surgical standpoint. D/w Cardiology, OK to restart A/C.
Original Note:
Today's Communication / Plan
-
Continue LRD
Assessment / Plan
-
Assessment: 78 y/o female with pSBO, prior surgical hx (midline laparotomy), tubal now resolving
Afebrile, afib on cardizem gtt
On ABX for UTI
Passing flatus, bm's, tolerating diet
XR stable from previous, contrast within the colon
Plan:
Tolerating diet with continued improvement
No plans for surgical intervention at this time
Please call with questions/concerns
Subjective Data
-
Date of Service: August 07, 2023
Patient seen and examined at bedside with Dr. Kothari. Denies n/v. Tolerating diet. BM's yesterday but none yet today. Requested miralax. Denies abdominal pain.
Objective Data
-
Intake and Output
08/06/23 08/07/23 08/08/23
06:59 06:59 06:59
Intake Total 390 / 390 1230 / 1230
Balance 390 / 390 1230 / 1230
Intake:
Oral fluids 390 / 390 570 / 570
IV fluids (Total) 660 / 660
Other:
Number of approximated SMALL 4
amounts of urine
Number of approximated MODERATE 1
amounts of urine
How many times incontinent 1
MODERATE amount urine
Vital Signs
Temp Pulse Resp BP Pulse Ox
98.0 F 120 16 113/77 96
08/07/23 07:30 08/07/23 07:57 08/07/23 07:30 08/07/23 07:30 08/07/23 07:30
Lab Results
08/07/23 06:23
08/07/23 06:23
Calcium 8.6 mg/dl (8.4-10.2) 08/07/23 06:23
Total Bilirubin 1.6 mg/dl (0.2-1.3) H 08/02/23 14:35
AST 22 U/L (14-36) 08/02/23 14:35
ALT 12 U/L (0-35) 08/02/23 14:35
Alkaline Phosphatase 71 U/L (38-126) 08/02/23 14:35
Total Protein 6.4 g/dl (6.3-8.2) 08/02/23 14:35
Albumin 4.0 g/dl (3.5-5.0) 08/02/23 14:35
Physical Exam
-
Gen: NAD
Abd: soft, nt, nd
[2023-08-07] MEDS: ELIQUIS 2.5 MG PO ×2 (11:55→20:18)
--- NOTE | 2023-08-07 12:59 | W.PN.CD ---
Today's Communication / Plan
-
transition diltiazem drip to diltiazem ER 240mg daily
start eliquis 2.5mg bid
Impression / Plan
-
SBO:
-management per primary/surgery
-so far has been conservative management
AFIB with RVR, paroxysmal: now with recurrence in setting of SBO
-continue metoprolol succinate 100mg daily
-transition diltiazem drip to diltiazem ER 240mg daily
-[id number] score is 4 for female, age, HTN- discussed with team, and added eliquis 2.5mg bid
HTN:
-monitor with addition of diltiazem
Physical Exam
Vital Signs/Labs
Vital Signs
Temp Pulse Resp BP Pulse Ox
97.6 F 128 16 103/73 96
08/07/23 11:20 08/07/23 11:20 08/07/23 11:20 08/07/23 11:20 08/07/23 11:20
08/07/23 06:23
08/07/23 06:23
TSH 1.11 uIU/ml (0.47-4.68) 08/03/23 06:56
Physical Exam
Constitutional: No acute distress and Comfortable
EENT: Moist mucous membranes
Cardiovascular: Pedal edema is absent, JVD pressure is normal, Systolic murmur absent and Rhythm/rate is irregular
Respiratory: Respiratory effort normal, Lungs clear to auscul. and Wheeze Absent
GI: Soft and Distention absent
Neuro/Psych: AO x 3
Data Reviewed
-
Date of Service: August 07, 2023
EKG: Other (Tele: A fib average ~100)
[2023-08-07] MEDS: CARDIZEM CD 240 MG PO (13:31)
[2023-08-07] MEDS: TUMS 2 TABLET PO (21:37)
[2023-08-08 03:15] VITALS: BP 114/74
[2023-08-08] MEDS: D5/0.45%NSS with KCL 20 MEQ 1000 IV (05:11)
[2023-08-08 07:30] VITALS: BP 129/78
[2023-08-08 07:35] LABS: Blood Urea Nitrogen 13 mg/dl (7-17); Calcium 8.8 mg/dl (8.4-10.2); Carbon Dioxide 25 mmol/L (22-30); Chloride 99 mmol/L (98-107); Estimated Creatinine Clearance 53 ml/min; Glucose 111 mg/dl (70-99); Potassium 3.8 mmol/L (3.5-5.1); Sodium 129 mmol/L (135-145); eGFR > 60.00
[2023-08-08] MEDS: ELIQUIS 2.5 MG PO (07:50)
[2023-08-08] MEDS: MIRALAX 17 GRAMS PO (07:50)
[2023-08-08] MEDS: TOPROL XL 100 MG PO (07:50)
[2023-08-08] MEDS: CARDIZEM CD 240 MG PO (07:50)
[2023-08-08] MEDS: ROCEPHIN 1000 MG IV (07:51)
[2023-08-08] MEDS: STERILE WATER FOR INJECTION 10 ML IV (07:51)
--- NOTE | 2023-08-08 08:02 | W.PN.HOSP.TC ---
Today's Communication/Plan
-
Discharge planning today.
Assessment / Plan
Assessment / Plan
Physical exam:
General: Well Developed, Well Nourished and No Apparent Distress
HEENT: Normocephalic, Atraumatic and Moist Mucous Membranes
Respiratory: Clear to Auscultation; Negative Wheezes, Rales or Rhonchi
Cardiac: Regular Rhythm and S1/S2
GI: Soft, Nontender and Nondistended
Musculoskeletal: No Clubbing, No Cyanosis and No Edema
Neuro: Awake, Alert and Oriented
Psych: Calm
A/P:
#1 Partial SBO - clinically appears to have resolved. Surgery decided on conservative management. She continues to do well clinically.
CT abd: �New small bowel distention is may be due to a partial or developing obstruction. Oral contrast is present in the left colon. Ileus is possible as well. Transition zone probably in the mid right abdomen in the region of the distal ileum
Mild left hydronephrosis and hydroureter. No radiopaque stone causing obstruction identified. Lack of excretion on delayed imaging. This may be due to an obstructing mass, stricture or nonradiopaque stone.
Mild diverticulosis. Stable
Mild fecal material in the colon. Progressed
08/05 KUB: 1. Dilation of small bowel, with relative decompression of the colon, suggestive of partial small bowel obstruction.
2. Oral contrast is seen to the level of the sigmoid colon, excluding complete intestinal obstruction.
08/06 KUB Persistent mild small bowel dilatation.
Oral contrast from recent CT again seen in large bowel, without significant change.
-now surg advanced to LRD and slowed IVF. Tolerating diet well. Surgery cleared her for discharge.
- IV Dilaudid PRN - hold for sedation
- anti emetics
- PRN analgesia
#2 Hx of Paroxysmal Atrial Fibrillation:
pt was in NSR, 08/06 she went into A.Fib with rvr. She goes to the [facility], though admits not seeing in a while. Case reviewed with him, consult placed, input of cardio appreciated. Remains in A.Fib with HR 110-130 on cardizem drip and Toprol XL
100 qd. Discussed with cardiology today on 08/08 and cardiology cleared her for discharge.
Mild left hydronephrosis and hydroureter. No radiopaque stone causing obstruction identified
- consider Urology consult
UA showed bact with WBC, though pt was totally asymptomatic. It is unclear if this is simply asymptomatic colonization vs low level UTI. At this point would go ahead and treat, as the E.Coli is pansensitive, will order short course of Rocephin and
will switch to oral for just a couple more days upon discharge.
Hypokalemia
3.3-->3.1-->4.2-->4.6-->4.5-->3.6-->3.8
resolved, though now then with mild acidosis, adjusted IVF, acidosis resolved (CO2 16-->23)
Asymptomatic Hyponatremia - suspect elements of hypovolemia� plus� SIADH, resolved
prior HX SIADH� and Tx with Samsca
Na 126-->129-->131-->135-->134-->131-->129
- Renal consult appreciated, signed off 08/04
DVT Px: SCD
Code: Full
IP MS
Anticipated Discharge: Today
Subjective/Interval History
-
Date of Service: August 08, 2023
Patient denies any abdominal pain nausea or vomiting. Afebrile
Objective Data
-
Labs:
Laboratory Results
08/08/23
06:23
Sodium 129 L
Potassium 3.8
Chloride 99
Carbon Dioxide 25
BUN 13
Creatinine 0.5 L
Glucose 111 H
Calcium 8.8
Vital Signs:
Vital Signs
Temp Pulse Resp BP Pulse Ox
97.6 F 76 18 114/74 94
08/08/23 03:15 08/08/23 07:50 08/08/23 03:15 08/08/23 03:15 08/08/23 03:15
I&O
08/07/23 08/08/23 08/09/23
06:59 06:59 06:59
Intake Total 1230 / 1230 840 / 840
Balance 1230 / 1230 840 / 840
Review of Systems
-
All other systems: Reviewed and negative
--- NOTE | 2023-08-08 10:08 | W.PN.CD ---
Today's Communication / Plan
-
stable from cardiac perspective: we will arrange for follow up with us
cardiac meds: Toprol XL 100mg daily, diltiazem 360mg daily, eliquis 2.5mg bid
Impression / Plan
-
SBO:
-management per primary/surgery
-so far has been conservative management
AFIB with RVR, paroxysmal: now with recurrence in setting of SBO
-continue metoprolol succinate 100mg daily
-plan for dischage on diltiazem ER 360mg daily
-[id number] score is 4 for female, age, HTN- discussed with team, and added eliquis 2.5mg bid
-if remains in A fib at office follow up, will offer DCCV (after 3 weeks eliquis)
HTN:
-stable with addition of diltiazem
Physical Exam
Vital Signs/Labs
Vital Signs
Temp Pulse Resp BP Pulse Ox
97.7 F 76 18 129/78 96
08/08/23 07:30 08/08/23 07:50 08/08/23 07:30 08/08/23 07:30 08/08/23 07:30
08/07/23 06:23
08/08/23 06:23
TSH 1.11 uIU/ml (0.47-4.68) 08/03/23 06:56
Physical Exam
Constitutional: No acute distress and Comfortable
EENT: Moist mucous membranes
Cardiovascular: Pedal edema is absent, JVD pressure is normal, Systolic murmur absent and Rhythm/rate is irregular
Respiratory: Respiratory effort normal, Lungs clear to auscul. and Wheeze Absent
GI: Soft
Neuro/Psych: AO x 3
Data Reviewed
-
Date of Service: August 08, 2023
EKG: Other (A fib, avg HR ~100)
Labs: Labs Reviewed by me
--- NOTE | 2023-08-08 11:50 | W.DCSUMMARY ---
Discharge Summary
Discharge Data
Date of Admission: 08/02/23
Date of Discharge: 08/08/23
-
Pending Results: No
Hospital Course
Patient 78 years old female with history of hypertension, paroxysmal atrial fibrillation, hyponatremia, anxiety, presented to the hospital abdominal pain and found to have small bowel obstruction. Surgery consulted. She was elected to be treated
with nonsurgical conservative management. She was noted to have prior surgical history with C-sections and tubal hence adhesions likely the culprit of her partial small bowel obstruction. She did well rest of hospital stay and she was able to be
advanced her diet as tolerated well. Surgery ultimately cleared her for discharge.
Due to her hyponatremia and hypokalemia nephrology was consulted. Nephrology felt that hypovolemic hyponatremia was the cause of her hyponatremia. Of note, HCTZ was part of her medications list and this was discontinued. She received normal
saline, she was recommended to stop drinking beer at home, and she was recommended to stop HCTZ. SSRI low-dose was continued but will need to monitor closely as outpatient and consider discontinuation if hyponatremia worsens over time. Her
potassium was replaced appropriately. She had mild hydronephrosis but no obstructive stone identified and will need to follow-up as outpatient. Renal function remained stable.
Patient also went into atrial fibrillation with medical response and cardiology consulted. She required Cardizem drip. Cardiology recommended adjustment of her medications and she was kept on Toprol and added diltiazem and also started on Eliquis.
Patient did well from cardiac perspective and cardiology is planning follow-up at office and offered cardioversion after 3 weeks of anticoagulation if she still in atrial fibrillation.
She also was treated for possible urinary tract infection. She received 3 days worth of IV ceftriaxone and switched to oral Keflex for couple more days to finish a 5 days course. She has remained afebrile and normal WBC.
Overall she did well and she is very eager to go home today. She will be discharged in stable condition today.
Discharge duration: 35 minutes
Discharge Plan
-
Patient Disposition: Home (Routine Discharge)
Discharge Diagnosis/Procedures: Small bowel obstruction, partial. Paroxysmal atrial fibrillation. Hypertension.
Diet: Low Cholesterol
Activity: As tolerated
Driving Restrictions: As prior to admission
Blood Work: Please PCP to order CBC, BMP within 1 week.
Referrals:
Paulo Mckeon DO [Family Provider] - in less than 1 week
Katarina Forde CRNP [Specified Professional Personl] - 08/24/23 10:00 am
Prescriptions:
New
diltiazem HCl 180 mg Capsule,Extended Release 24hr
360 mg PO DAILY 30 Days Qty: 60 0RF
Eliquis 2.5 mg Tablet
2.5 mg PO BID 30 Days Qty: 60 0RF
cephalexin 500 mg capsule
500 mg PO BID Qty: 4 0RF
Continued
metoprolol succinate 100 MG tablet extended release 24 hr
100 mg PO DAILY
cholecalciferol (vitamin D3) 1,000 UNITS tablet
1,000 units PO DAILY
rosuvastatin 5 MG tablet
5 mg PO QPM
Patient Comments:
08/02/2023: pt states she stopped taking this about a week ago, pt did not explain why.
acetaminophen 325 MG tablet
650 mg PO Q6HPRN PRN (Reason: mild pain/ fever>100.5F) 0RF
escitalopram oxalate 5 mg tablet
5 mg PO DAILY@1200
Discontinued
losartan-hydrochlorothiazide 100-12.5 mg tablet
1 tab PO DAILY
Discharge Orders:
Discharge Patient (As Directed); Ordered 08/08/23
Ordered By: Chi Singer
Discharge Date and Time
Discharge Date/Time: 08/08/23 14:00
== END 2023-08-08 14:00 | disposition home or self-care (01) | DRG 389 ==
LOC: 3 WEST ACU 20:29
PROVIDERS: Internal Medicine; Physician Assistant; Registered Nurse; ADMITTING PHYSICIAN Internal Medicine; ATTENDING PHYSICIAN Hospitalist; CONSULT PHYSICIAN Internal Medicine; EMERGENCY PHYSICIAN Emergency Medicine; FAMILY PHYSICIAN Family Medicine; OTHER PHYSICIAN Student in an Organized Health Care Education/Training Program; OTHER PHYSICIAN Surgery
DX: K56.600 Partial intestinal obstruction, unspecified as to cause (principal); E22.2 Syndrome of inappropriate secretion of antidiuretic hormone; M25.062 Hemarthrosis, left knee; N13.30 Unspecified hydronephrosis; F05 Delirium due to known physiological condition; R64 Cachexia; Z68.1 Body mass index [BMI] 19.9 or less, adult; I48.0 Paroxysmal atrial fibrillation; I10 Essential (primary) hypertension; E78.00 Pure hypercholesterolemia, unspecified; Z79.01 Long term (current) use of anticoagulants; E87.6 Hypokalemia; E86.1 Hypovolemia
CPT/HCPCS: 74018; 74022; 74177; 80048; 80053; 81003; 81015; 83690; 83935; 84300; 84443; 85025; 85027; 87086; 87088; 87186; 93005; 96361; 96374; 97162; 97166; 99285; Q9967

== ENCOUNTER 2023-08-12 03:02 | Inpatient (IN) | payer OTHER, SELFPAY ==
[2023-08-11 20:57] VITALS: BP 114/54
[2023-08-11 21:05] VITALS: BP 114/54; BMI 22.1
[2023-08-11 21:23] VITALS: BP 89/56
[2023-08-11 21:28] LABS: Hematocrit 35.3 % (37.0-47.0); Hemoglobin 12.6 g/dL (12.0-16.0); Mean Corp Hgb Conc. 35.7 g/dL (33.0-37.0); Mean Corpuscular Hgb 31.7 pg (27.0-31.0); Mean Corpuscular Volume 88.7 fL (81.0-99.0); Mean Platelet Volume 10.5 fL (7.4-10.4); Nucleated Red Blood Cells % 0 %; Platelet Count 447 10^3/uL (130-400); Red Blood Cell Count 3.98 10^6/uL (4.20-5.40); Red Cell Dist. Width 13.4 % (11.5-14.5); White Blood Cell Count 15.1 10^3/uL (4.8-10.8)
[2023-08-11 21:50] LABS: Absolute Neutrophils -Man Diff 12.5 10^3/uL (1.4-6.5); Band Neutrophils 9 % (0-3); Lymphocytes 12 % (20-51); Monocytes 5 % (2-9); Normal RBC Morphology Yes; Platelets Checked Yes; Segmented Neutrophils 74 % (42-75); Total Cells Counted 100
[2023-08-11 21:54] LABS: ALT (SGPT) 21 U/L (0-35); AST (SGOT) 41 U/L (14-36); Albumin 2.9 g/dl (3.5-5.0); Alkaline Phosphatase 52 U/L (38-126); Blood Urea Nitrogen 39 mg/dl (7-17); Carbon Dioxide 22 mmol/L (22-30); Chloride 94 mmol/L (98-107); Estimated Creatinine Clearance 28 ml/min; Glucose 107 mg/dl (70-99); Potassium 3.7 mmol/L (3.5-5.1); Sodium 128 mmol/L (135-145); Total Bilirubin 1.1 mg/dl (0.2-1.3); eGFR 45.76
[2023-08-11 22:00] VITALS: BP 99/50
[2023-08-11] MEDS: NSS 250 IV (22:15)
[2023-08-11 23:00] VITALS: BP 89/53
[2023-08-12] VITALS (13 sets, daily range): BP systolic 76–116; BP diastolic 46–63; PULSE 76; BMI 21.1
[2023-08-12] MEDS: UNASYN IV (00:11)
--- NOTE | 2023-08-12 00:28 | ED.GENMED ---
History of Present Illness
General
Chief Complaint: Fainting Sensation
Source: patient and family
Exam Limitations: none
Time Seen by Provider: 08/11/23 21:46
Travel History
Have you had any contact with someone who has COVID-19?: No
Do you have any symptoms of coronavirus? Fever > 100 degrees, chills, cough, shortness of breath, sore throat, loss of taste or smell, muscle aches, or headache?: No
History of Present Illness
History of Present Illness:
78-year-old female primarily presents with a syncopal episode while on the toilet. Generally weak. Discharged 4 days ago. Patient has not eating or drinking much. Generally weak. Denies other specific complaints.
Past History
Past History
ED Past Medical History: Arrthythmia and HTN
ED Past Surgical History: and Gynecological
Social History
Tobacco: Non-smoker
Alcohol: Occasional
Drug: None
Personal:
Living: with family (lives with son)
Employment: Retired
Family History
Family History: Other (Noncontributory)
Phy Exam
Physical Exam
Physical Exam:
GENERAL: Alert and oriented in no apparent distress generally weak appearing. Hypotensive on arrival
EYE: Orbits normal.
NECK: Supple, no significant adenopathy.
ENT: Pharynx without erythema. Poor dentition
CARDIAC: Irregular irregular no murmur
LUNGS: Clear breath sounds,normal
ABDOMEN: Soft, bowel sounds present. No rebound or guarding no mass or hernia
NEUROLOGICAL: Alert and oriented , grossly non-focal
SKIN: Warm and dry, no rash or lesion, no discoloration, skin intact.
MUSCULOSKELETAL: No edema,no deformity.Good color
PSYCH: Normal and appropriate interaction..
Course
Orders/Labs/Results
Orders:
Orders
08/11/23 21:22
Complete Blood Count/With Diff Urgent
Comprehensive Metabolic Panel Urgent
Manual Differential Urgent
08/11/23 21:58
Cardiac Monitoring- Treatment ONCE
EKG- Treatment ONCE
IV Insert/Care/Rem.- Treatment PRN
Urinalysis Reflex To Culture Urgent
Date Specimen was Collected: 08/12/23
Time Specimen was Collected: 00:22
CXR Port [CR Chest Portable - 1 View] Urgent
Comment:
Reason For Exam: hypoxia.
Reason Study Needs to be Portable: Unable to Transport
08/11/23 21:59
0.9% Sodium Chloride 250 ml [Nss] 250 ml IV BOLUS
08/11/23 22:24
Lactic Acid Q4H
Comment: CANCEL 2nd LACTIC ACID IF 1st LACTIC ACID IS LESS THAN 2
Blood Culture Q30M
FREDO Source: Blood/Venous
Specimen Description:
Blood Culture Q30M
FREDO Source: Blood/Venous
Specimen Description:
08/11/23 23:11
CT Abd/pel Without Iv Or Oral Urgent
Comment:
Reason For Exam: Sepsis/abdominal pain
08/11/23 23:32
Ampicillin/Sulbactam 3 G [Unasyn] 3 gm 0.9% Sodium Chloride 100 ml [Nss] 100 ml IV NOW
08/12/23 00:36
Urine Microscopic Reflex Cult Urgent
Urine Culture Urgent
FREDO Source: U
Specimen Description:
Date Specimen was Collected: 08/12/23
Time Specimen was Collected: 00:22
08/12/23 00:49
0.9% Sodium Chloride 1000 ml [Nss] 1,100 ml IV NOW STA
08/12/23 02:04
Lactic Acid Q4H
Comment: CANCEL 2nd LACTIC ACID IF 1st LACTIC ACID IS LESS THAN 2
08/12/23 02:18
Admit/Transfer Patient As Directed
Co-Sign Provider:
Level of Care: Inpatient admission
Assign to:: Medical/Surgical
Physician / Group: Bijal Ladd
Diagnosis: SBO
Reason for Hospitalization: SBO
Expected length of stay greater than two midnights?: Yes
ELOS- Estimated Length of Stay in days: 3
I certify the patient meets the requirements for IP care: Yes
Code Status As Directed
Resuscitation Status: Full Code
08/12/23 02:20
Gastrointestinal Tubes As Directed
Type: [place] sump
To suction?: Yes
Type of suction: Low intermittent
Irrigate tube?: Yes
Irrigant: NSS
Frequency: Q4H
Amount in mls: 30
Irrigation Directions: Irrigate Q4H and PRN
08/12/23 02:24
Transfer Patient As Directed
Transfer to: Telemetry
Reason for Telemetry: Chest Pain syndromes
Date to Stop Telemetry: 08/14/23
Time to Stop Telemetry: 11:00
08/12/23 04:24
0.9% Sodium Chloride 1000 ml [Nss] 1,000 ml IV 100 mls/hr
Acetaminophen [Tylenol] 650 mg PO Q4HPRN PRN
Ondansetron Injectable [Zofran] 4 mg IV Q6HPRN PRN
08/12/23 04:24
Consult Notification Routine
Specialty to Notify: Surgical
Date consulting provider notified: 08/12/23
Time consulting provider notified: 08:37
Notified:: Provider
Comment: TT to Dr Kothari
SURGICAL CONSULT Routine
Consulting Provider: Jake Hoffmann
Was physician already notified: No
Reason for consult: high grade SBO
Activity As Directed
Activity Level: As Tolerated
Nursing to Place Non Medication Order As Directed
Physician Order: OK to hold suction for administration of oral medications
Pneumatic Compression Sleeves As Directed
Type: Knee high
Vital Signs As Directed
Frequency: Per unit guidelines
DX Deep Vein Thrombosis Video Routine
08/12/23 05:03
Basic Metabolic Panel IN AM
Complete Blood Count/With Diff IN AM
Magnesium IN AM
08/12/23 Breakfast
NPO
Allow oral meds: Yes
Allow clear liquids: Sips of Clears
NPO with Ice Chips: Yes
08/12/23 08:00
Diltiazem Extended Release [Cardizem Cd] 360 mg PO DAILY
Metoprolol Xl [Toprol Xl] 100 mg PO DAILY
08/12/23 12:00
Ampicillin/Sulbactam 3 G [Unasyn] 3 gm 0.9% Sodium Chloride 100 ml [Nss] 100 ml IV Q12H
Escitalopram Oxalate [Lexapro] 5 mg PO DAILY@1200
08/14/23 11:00
DC Protocol for Telemetry ONCE
Abnormal Lab Results
08/11/23 08/11/23 08/12/23
21:22 22:24 00:36
WBC 15.1 H 10^3/uL
(4.8-10.8)
RBC 3.98 L 10^6/uL
(4.20-5.40)
Hct 35.3 L %
(37.0-47.0)
MCH 31.7 H pg
(27.0-31.0)
Plt Count 447 H D 10^3/uL
(130-400)
MPV 10.5 H fL
(7.4-10.4)
Abs Neuts (Manual) 12.5 H 10^3/uL
(1.4-6.5)
Band Neutrophils 9 H %
(0-3)
Lymphocytes (Manual) 12 L %
(20-51)
Sodium 128 L mmol/L
(135-145)
Chloride 94 L mmol/L
(98-107)
BUN 39 H mg/dl
(7-17)
Creatinine 1.2 H mg/dL
(0.6-1.0)
Glucose 107 H mg/dl
(70-99)
Lactic Acid 3.0 H mmol/L
(0.7-2.0)
AST 41 H U/L
(14-36)
Total Protein 5.0 L g/dl
(6.3-8.2)
Albumin 2.9 L g/dl
(3.5-5.0)
Urine Ketones 1+ A
(Negative)
Urine Bilirubin 1+ A
(Negative)
Leukocyte Esterase Rfl Trace A
(Negative)
Urine RBC 3-6 A /HPF
(0-2)
Urine Bacteria (Reflex) Moderate A
(Negative)
08/11/23 21:22
08/11/23 21:22
Vital Signs
Initial and Last Documented VS:
Initial Vital Signs
Pulse Resp BP
86 24 114/54
08/11/23 20:57 08/11/23 20:57 08/11/23 20:57
Last Documented Vital Signs
Temp Pulse Resp BP Pulse Ox
97.6 F 79 18 105/48 94
08/13/23 07:45 08/13/23 07:45 08/13/23 07:45 08/13/23 07:45 08/13/23 07:45
*Radiology
Radiology exam reviewed: radiology read reviewed (CT scan shows high-grade small bowel obstruction with transition point terminal ileum. Concerning for peritoneal carcinomatosis. Distended stomach and distal esophagus new small bilateral pleural
effusions persistent left hydronephrosis)
*Pulse Oximetry
Patient hypoxic: yes
*EKG
Interpreted by ED Provider?: Yes
Interpretation: abnormal
Comparison EKG: changes noted
Heart Rate: 87
Rate: normal
Rhythm: a-fib and PVC's
[place]: normal axis
Interval: normal interval
QRS Pattern: poor R-wave progression
Ischemia: non-specific ST changes
*Calibration Checker Interpretation
Rate: normal
Interpretation: abnormal
Heart Rate: 88
Rhythm: a-fib
*Critical Care Note
Total Time (30-74mins, 75-104mins- exclusive of procedures): Not Applicable
Update Note
Update Note:
Patient clinically septic with leukocytosis hypotension CT scan concerning for peritoneal carcinomatosis. Clinically and nonsurgical abdomen however. Admit IV fluids antibiotics referrals again to surgery and medicine.
0100.... Patient rechecked. Mildly hypotensive but awake and alert and perfusing. Abdomen with hyperactive bowel sounds. Mildly distended but nontender. Clinically not in acute surgical abdomen. Concern for peritoneal carcinomatosis based on
the CT report. Although stomach is distended patient is tolerating well and reluctant to do NG tube with anticoagulation and possible concern for nosebleed issues along with discomfort.
ED Attending Note
-
Portions of this chart may have been created with voice recognition software.� Occasional wrong word or��sound alike� substitutions may have occurred due to the inherent limitations of voice recognition software.
Discharge Plan
Departure
Patient Disposition: Admit
Date of Disposition: 08/12/23
Time of Disposition: 00:50
Presentation/result/management discussed w/ accepting MD/DO: Hospitalist
Discharge Problem:
Syncope, Dehydration/renal insufficiency, Sepsis, Small bowel obstruction, Possible peritoneal carcinomatosis
Interventions
Interventions:
*Risk Screen - Suicide Last Done: 08/12/23 04:36
*General Assessment Last Done: 08/11/23 21:05
*Neglect/Abuse Screening Last Done: 08/11/23 21:05
ED- Fall Risk Assessment Last Done: 08/11/23 21:05
*ED COVID-19 Vaccine History Last Done: 08/11/23 21:05
*Nursing Disposition Last Done: 08/12/23 04:04
ED- Cardiac Assessment Last Done: 08/11/23 21:05
ED- Neurological Assessment Last Done: 08/11/23 21:05
Discharge Date and Time
Discharge Date/Time: 08/12/23 04:04
[2023-08-12 01:08] LABS: Urine Albumin Trace (Neg - Trace); Urine Bilirubin 1+ (Negative); Urine Character Slightly Cloudy (Clear); Urine Color Amber; Urine Glucose Negative (Negative); Urine Ketone 1+ (Negative); Urine Leukocyte Trace (Negative); Urine Nitrite Negative (Negative); Urine Occult Blood Negative (Negative); Urine Urobilinogen Negative (Neg - 1+)
[2023-08-12] MEDS: NSS 1100 ML IV (01:08)
[2023-08-12 01:46] LABS: Urine Amorphous Seen; Urine Bacteria Moderate (Negative); Urine Mucus Moderate; Urine Squamous Cell >30 /LPF (Few)
--- NOTE | 2023-08-12 01:48 | HPS.HSE ---
Addendum entered and electronically signed by Bijal Ladd MD 08/12/23 04:05:
patient refused NGT
Original Note:
Family Physician
-
Family Physician: Paulo Mckeon
Chief Complaint
-
syncope
History of Present Illness
Ms. Lisbet Josue is a 78 yo woman with hx paroxysmal afib, HTN, recent admmission 08/02-08/08 for small bowel obstruction which improved with conservative management presents to the ER after an episode of syncope.
Patient unable to provide good history. She states she had abdominal pain, nausea and vomiting. No fevers.
During last hospitalization patient was treated for hyponatremia. Her HCTZ was stopped and instructed to watch fluid intake. Patient had afib with RVR requiring cardizem gtt. She was started on Eliquis and Diltiazem added to medication regimen.
Medical History
Past Medical History
Past Medical History: Reports Arrhythmia (Prx AF ), HTN and Hypercholesterolemia
Past Surgical History: Reports None
Social History
Tobacco: Non-smoker
Alcohol: None
Family History
Family History: Not pertinent
Allergies / Home Medications
Allergies reflects when Allergies were last updated in [facility].
Home Medications with original date entered in [facility]
Allergy/Medication List:
Allergies
Allergy/AdvReac Type Severity Reaction Status Date / Time
No Known Allergies Allergy Verified 08/11/23 21:04
Home Medications
cholecalciferol (vitamin D3) 25 mcg (1,000 unit) tablet 1,000 units PO DAILY Supplement 02/17/21
metoprolol succinate 100 mg tablet,extended release 24 hr 100 mg PO DAILY Heart disease/condition 02/17/21
rosuvastatin 5 mg tablet 5 mg PO QPM High cholesterol 08/22/21
acetaminophen 325 mg tablet 650 mg PO Q6HPRN PRN mild pain/ fever>100.5F 08/25/21
escitalopram oxalate 5 mg tablet 5 mg PO DAILY@1200 Depression 08/02/23
apixaban 2.5 mg tablet (Eliquis) 2.5 mg PO BID 30 days #60 tabs 08/08/23
cephalexin 500 mg capsule 500 mg PO BID #4 caps 08/08/23
diltiazem HCl 180 mg capsule,extended release 24 hr 360 mg PO DAILY 30 days #60 caps 08/08/23
Review of Systems
-
History Source: Patient
A 12 point ROS was completed and negative except as noted: Yes
Physical Exam
Vital Signs
Vital Signs
Temp Pulse Resp BP Pulse Ox
97.9 F 88 26 94/49 80
08/11/23 21:41 08/12/23 01:23 08/12/23 01:15 08/12/23 01:23 08/12/23 01:23
Physical Exam
General: Other (frail appearing, conversant but confused )
HEENT: PERRLA
Respiratory: Clear; No Wheezes
Cardiac: S1/S2 and Regular Rhythm
GI: Other (distended, non-tender )
Musculoskeletal: No Edema
Skin: Warm and Dry; No Rash
Neuro: Awake, Alert and Other (not able to give me a coherent history )
Psych: Confused
Laboratory Results
-
08/11/23 21:22
08/11/23 21:22
Laboratory Results
Lactic Acid 3.0 mmol/L (0.7-2.0) H 08/11/23 22:24
Total Bilirubin 1.1 mg/dl (0.2-1.3) 08/11/23 21:22
AST 41 U/L (14-36) H 08/11/23 21:22
ALT 21 U/L (0-35) 08/11/23 21:22
Alkaline Phosphatase 52 U/L (38-126) 08/11/23 21:22
Data Reviewed
-
Diagnostic Radiology: Report Reviewed by me
Lab Data: Labs Reviewed by me
Impression/Plan
-
Ms. Lisbet Josue is a 78 yo woman with hx paroxysmal afib, HTN, recent admmission 08/02-08/08 for small bowel obstruction which improved with conservative management presents to the ER after an episode of syncope found o have recurrent high grade
small bowel obstruction and significant dehydration with DOYLE.
Triage VS: T 97.9, P 86, RR 24, BP 114/54
Labs: WBC 15.1, Hg 12.6, PLT 447, Na 128, K+ 3.7, Cr 1.2
CXR with loop of bowel under right diaphragm (no free air seen on CT - see below)
CT A/P:
'high-grade small bowel obstruction with transition point in the region of the terminal ileum, where there are several ill-defined peritoneal soft tissue neoplastic masses. Scattered omental and peritoneal nodularity most prominent in the left
lower quadrant, concerning for peritoneal carcinomatosis. Marked fluid distention of the stomach and distal esophagus.. small bowel dilated up to 5.1 cm.. new small bilateral pleural effusions. posterior dependent atelectasis or aspiration.
coronary artery calcifications. enlarged heart. diffuse atheromatous disease. Persistent moderate left hydroureteronephrosis to the level of the mid ureter.'
MAR: IVF, IV Unasyn
High grade small bowel obstruction
-place NGT
-admit to tele
-NPO
-IVF
-GS consult
-IV Zofran PRN
-patient surprisingly looks comfortable on exam but very confused
Finding on CT concerning for peritoneal carcinomatosis
-this wasn't mentioned on last CT
-F/U path if surgery performed
-patient too confused to have meaningful conversation about this finding with her - team to discuss with family tomorrow
SIRS 2/2 obstruction and dehydration versus sepsis
Lactic Acidosis
-unclear if presentation 2/2 SIRS and dehydration versus sepsis
-will cover with IV antibitoics while trending lactate and follow up cultures
-IVF as above
Hypovolemic Hyponatremia
-IVF
-monitor Na
Acute Kidney Injury
-in setting of obstruction and dehydration
-IVF
Paroxysmal Afib
Hx afib with RVR
-TEACHER EDUCATION DIRECTOR metoprolol and diltiazem - OK to hold suction while giving these meds
-hold TEACHER EDUCATION DIRECTOR Eliquis as patient will likely need surgery
DVT PPx
SCD
FULL CODE - based on last admission - team to readdress with patient and family in morning
[2023-08-12 02:43] LABS: Lactic Acid 1.6 mmol/L (0.7-2.0)
[2023-08-12] MEDS: NSS 1000 IV ×2 (05:02→23:53)
--- NOTE | 2023-08-12 06:01 | PTCARENOTE ---
Received pt from ED via stretcher. Telemetry order> SR on monitor w/ PVCS- strip placed in chart.
T97.5, HR83, RR16, BP99/51, 87% room air. O2 placed> pox 93% 4LNC. No c/o pain.
No c/o N/V. Pt refused NGT in ED. Abdomen round, nontender, BS hyperactive. Per order, NPO- PO meds ok.
PMH urinary retention- bladder scanned 118ml. Pt wearing own pull ups. Pt unsure of last BM.
Pt confused and forgetful- bed alarm in place. PMH retrieved from past records. Pt unsure when she took her medications.
Pt oriented to room. call bruno within reach.
[2023-08-12 06:19] LABS: % Basophils 0.4 % (0-2); % Eosinophils 0.8 % (0-6); % Immature Granulocytes 0.7 % (0-0.5); % Lymphocytes 9.3 % (20.5-51.1); % Monocytes 9.5 % (1.7-9.3); % Neutrophils 79.3 % (42.2-75.2); Absolute Basophils 0.1 10^3/uL (0-0.2); Absolute Eosinophils 0.1 10^3/uL (0-0.7); Absolute Immature Granulocytes 0.1 10^3/uL (0-0.05); Absolute Lymphocytes 1.3 10^3/uL (1.2-3.4); Absolute Monocytes 1.3 10^3/uL (0.1-0.6); Hematocrit 30.5 % (37.0-47.0); Hemoglobin 10.9 g/dL (12.0-16.0); Mean Corp Hgb Conc. 35.7 g/dL (33.0-37.0); Mean Corpuscular Hgb 31.9 pg (27.0-31.0); Mean Corpuscular Volume 89.2 fL (81.0-99.0); Nucleated Red Blood Cells % 0 %; Platelet Count 401 10^3/uL (130-400); Red Blood Cell Count 3.42 10^6/uL (4.20-5.40); Red Cell Dist. Width 13.5 % (11.5-14.5); White Blood Cell Count 13.9 10^3/uL (4.8-10.8)
--- NOTE | 2023-08-12 06:31 | W.PN.UPDATE ---
Update Note
Progress Note Update
repeating EKG to follow up QTc. Previously has been 440-460. If improved would change antinausea medication back to zofran PRN.
[2023-08-12 06:41] LABS: Blood Urea Nitrogen 48 mg/dl (7-17); Calcium 9.7 mg/dl (8.4-10.2); Carbon Dioxide 23 mmol/L (22-30); Chloride 94 mmol/L (98-107); Estimated Creatinine Clearance 30 ml/min; Glucose 85 mg/dl (70-99); Magnesium 1.7 mg/dl (1.6-2.3); Potassium 3.2 mmol/L (3.5-5.1); Sodium 130 mmol/L (135-145); eGFR 45.76
[2023-08-12] MEDS: CARDIZEM CD 360 MG PO (09:17)
[2023-08-12] MEDS: TOPROL XL 100 MG PO (09:17)
[2023-08-12] MEDS: KCL 270 MEQ IV (09:19)
--- NOTE | 2023-08-12 09:34 | CON.GS ---
Addendum entered and electronically signed by Wesley Kothari MD 08/12/23 10:34:
I saw and examined the patient.
The Roof Assembler's note was reviewed and I agree with the note.
Comment: Notably less lucid than last encounter during prior admission earlier this month. Unable to provide hx, though speaking with daughter on the phone the patient verbalized last night she felt she was having a stroke or cardiac event and
asked for an ambulance. Daughter reports she appeared to drop her head to one side and drool at that time. She reportedly has not taken much PO since DC and is less mobile and less able to manage her ADLs since DC. She was reportedly moving her
bowels and having liquid stools. Not entirely clear but sounds like there was no vomiting at home. On exam this am her belly is softly distended and totally nontender. Mild leukocytosis, +UA, distended bowel on non-con CT, now with concern for
peritoneal tumor deposits. Scan is limited by lack of contrast but no overt signs of perforation or bowel threat/compromise. Per her daughter, she is generally noncompliant with her health, has not had regular obstetrics gyn care/screening and has likely never
had a colonoscopy. Last dose eliquis last night 8PM. Plan today to check tumor markers, correct lytes per Hospitalist, consult Neurology to eval for possible CVA. She deferred NGT / eliquis and concern for nosebleed, OK to hold off for now as she
appears comfortable. Will cont to follow.
Original Note:
Medical History
-
Chief Complaint: syncope
History of Present Illness:
This is an 78 yo female with history of PAF on Eliquis, HTN, and recent admission for pSBO complicated by rapid AF and UTI () with improvement in bowel function prior to discharge with nonoperative measures now presenting with
reported abdominal pain, nausea and vomiting with syncope on the toilet at home. She is currently a poor historian which is a change from baseline. Unable to relay events from yesterday, states 'you know what happened'. Her daughter was updated and
case was discussed via telephone. Currently, the patient denies nausea, vomiting or abdominal pain. She has been refusing NGT placement.
Past Medical History
Past Medical History: Arrhythmias (PAF on Eliquis LD 08/11), HTN and Hypercholesterolemia
Past Surgical History:
Social History
Tobacco: Non-Smoker
Alcohol: None
Drug: None
Family History
Family History: Reviewed & Not Pertinent
Allergies / Home Medications
Allergy/AdvReac Type Severity Reaction Status Date / Time
No Known Allergies Allergy Verified 08/11/23 21:04
Medication Instructions Recorded Confirmed Type
cholecalciferol (vitamin D3) 25 1,000 units PO DAILY Supplement 02/17/21 08/02/23 History
mcg (1,000 unit) tablet
metoprolol succinate 100 mg 100 mg PO DAILY Heart 02/17/21 08/02/23 History
tablet,extended release 24 hr disease/condition
rosuvastatin 5 mg tablet 5 mg PO QPM High cholesterol 08/22/21 08/02/23 History
acetaminophen 325 mg tablet 650 mg PO Q6HPRN PRN mild pain/ 08/25/21 08/02/23 Rx
fever>100.5F
escitalopram oxalate 5 mg tablet 5 mg PO DAILY@1200 Depression 08/02/23 08/02/23 History
apixaban 2.5 mg tablet (Eliquis) 2.5 mg PO BID 30 days #60 tabs 08/08/23 Rx
cephalexin 500 mg capsule 500 mg PO BID #4 caps 08/08/23 Rx
diltiazem HCl 180 mg 360 mg PO DAILY 30 days #60 caps 08/08/23 Rx
capsule,extended release 24 hr
Review of Systems
-
History Source: Patient and Family
All other systems: Negative unless noted
A 10 point review of systems was completed, and was negative except as per HPI.
Physical Exam
Vital Signs
Temp Pulse Resp BP Pulse Ox
98.2 F 79 17 103/55 93
08/12/23 07:20 08/12/23 09:17 08/12/23 07:20 08/12/23 09:17 08/12/23 07:20
08/11/23 08/12/23 08/13/23
06:59 06:59 06:59
Actual Weight 52.305 kg
Body Mass Index (BMI) 21.1
Lab Results
08/12/23 05:03
08/12/23 05:03
WBC 13.9 10^3/uL (4.8-10.8) H 08/12/23 05:03
Hgb 10.9 g/dL (12.0-16.0) L 08/12/23 05:03
Hct 30.5 % (37.0-47.0) L 08/12/23 05:03
Plt Count 401 10^3/uL (130-400) H 08/12/23 05:03
Abs Immat Gran (auto) 0.1 10^3/uL (0-0.05) H 08/12/23 05:03
Neutrophils % 79.3 % (42.2-75.2) H 08/12/23 05:03
Physical Exam
General: No Apparent Distress
HEENT: Normocephalic
Respiratory: Non Labored Respirations
GI: Soft, Non Tender and Distended (mild, softly)
Skin: Warm and Dry
Neuro: Awake, Alert and Other (ox2-3)
Data Reviewed
-
CT Scan: Image Personally Visualized and interpreted, Report Reviewed by me, Discussed with Physician, Discussed with Patient and Discussed with Family
Labs: Labs Reviewed by me, Discussed with Physician, Discussed with Patient and Discussed with Family
Old Records: Reviewed
Assessment / Plan
-
78 yo female with h/o paf on eliquis (LD 08/11/23), and recent admit for SBO (08/02-08/08) now presenting with syncope and n/v/abdominal pain. Leukocytosis on presentation but now trending down. Hyponatremia/hypokalemia and rise in cr noted.
MS changes noted from prior presentation. CT abd/pelvis is consistent with recurrent SBO, unclear etiology. Possibly adhesions vs malignancy. CT limited given lack of contrast.
Plan:
Check tumor markers
Keep NPO x meds
Recommend NGT once patient agreeable
Hold Eliquis, given pattern of recurrence, will likely need operative intervention this admission
Medical management as per primary team
[2023-08-12 09:53] LABS: Urine Albumin Trace (Neg - Trace); Urine Bilirubin 1+ (Negative); Urine Character Clear (Clear); Urine Color Yellow; Urine Glucose Negative (Negative); Urine Ketone 2+ (Negative); Urine Leukocyte Trace (Negative); Urine Nitrite Negative (Negative); Urine Occult Blood Negative (Negative); Urine Specific Gravity 1.015 (<1.030); Urine Urobilinogen Negative (Neg - 1+)
[2023-08-12 10:10] LABS: Urine Bacteria Few (Negative); Urine Red Blood Cell 0-2 /HPF (0-2)
--- NOTE | 2023-08-12 11:09 | CON.NEURO ---
Consultation
Order
Date of Consultation: 08/12/23
Reason for Consult:encephalopathy
CC: none
HPI: This is an 78-year-old woman who presented to [facility] on August 11, 2023 with syncope. Neurology consultation was requested for evaluation and management of encephalopathy.
Ms. josue is unable to provide a history. Review of EMR was notable for recent admission for pSBO complicated by rapid AF and UTI (08/02-08/08/2023). Ms. Josue was started on Eliquis on Eliquis on 08/11.
VS: 114/74-76/53, afebrile.
CT head-no acute abnormalities, mild atrophy
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
EKG: NSR
PDMP:no recently Rxed meds
Labs: WBCs�15.1, sodium 128, creatinine�1.2, normal, glucose 107, normal TSH(1.1),
PMH: PA A-fib, long QT syndrome, HTN, DLP, E.Coli UTI(08/03/2023), ambulatory dysfunction
PSH: R SHERON, C section� �
SH: former smoker, retired secretary [employer]
FH: Noncontributory
All: NKDA
ROS: Limited due to encephalopathy. Negative for headache, change in vision or strength
General: Cachectic, in no acute distress.
Cardio: Regular rate and rhythm . Extremities are without cyanosis or edema.
Neuro:
Mental Status: Lethargic, requires constant stimulation to stay awake. Poor attention. oriented to name, July,, 'Anna'. Follows simple requests intermittently. Nonfluent. No hemineglect.
Cranial Nerves: . Pupils are equally round and reactive to light. EOMs full. BTT BL. No ptosis. No nystagmus. V1-V3 intact to light touch and pinprick bilaterally, symmetric. Face symmetric. Preserved hearing AU. Mild to moderate dysarthria.
Motor: UE-anti gravity, LE-drifts to the bed in <5 secs, min movements in bedplane, b/l foot drop?
Reflexes: Areflexic
Sensory: Unable due to poor attention
Coordination: No tremors, clonic movements.
Gait: deferred
Assessment and Plan:
I. Multifactorial encephalopathy (metabolic (hyponatremia, uremia), vascular(hypotension), infectious).
II. PA AFib
III. Ambulatory dysfunction
-Aspiration precautions.
-Avoid cerebral hypoperfusion, DENTURES LAB TECHNICIAN suppressants and anticholinergic medications.
-please check vit B12, ammonia, CK
-Brain MRI wo shy
-Will obtain collateral history from patient's family regarding cognitive baseline.
-DVT prophylaxis.
I personally reviewed all radiology and labs along with past medical records pertinent to current medical problems. Total time spent in patient care is 60 minutes.
Thank you for allowing us to participate in the care of this patient. We will continue to follow. Please do not hesitate to contact us with any questions or concerns.
Subjective/Objective
Subjective Data
Date of Service: August 12, 2023
Objective Data
Vital Signs
Temp Pulse Resp BP Pulse Ox
36.8 C 79 17 103/55 93
08/12/23 07:20 08/12/23 09:17 08/12/23 07:20 08/12/23 09:17 08/12/23 07:20
Lab Results
08/12/23 05:03
08/12/23 05:03
Sodium 130 mmol/L (135-145) L 08/12/23 05:03
Potassium 3.2 mmol/L (3.5-5.1) L 08/12/23 05:03
BUN 48 mg/dl (7-17) H 08/12/23 05:03
Glucose 85 mg/dl (70-99) 08/12/23 05:03
Calcium 9.7 mg/dl (8.4-10.2) 08/12/23 05:03
Patient Allergies
No Known Allergies Allergy (Verified 08/11/23 21:04)
Medications
-
Active Medications
Generic Name Dose Route Start Last Admin
Trade Name Freq PRN Reason Stop Dose Admin
Acetaminophen 650 mg 08/12/23 04:24
Acetaminophen 325 Mg Tablet PO 09/09/23 04:23
Q4HPRN PRN
mild pain/MCCLAIN/temp> 100.4F
Diltiazem HCl 360 mg 08/12/23 08:00 08/12/23 09:17
Diltiazem 180 Mg Extended Release (24 H) Capsule PO 09/09/23 07:59 360 mg
DAILY LILLIAN Administration
Escitalopram Oxalate 5 mg 08/12/23 12:00
Escitalopram 5 Mg Tablet PO 09/09/23 11:59
DAILY@1200 LILLIAN
Ampicillin Sodium/Sulbactam 120 mls @ 240 mls/hr 08/12/23 12:00
Sodium 3 gm/ Sodium Chloride IV
Q12H LILLIAN
Sodium Chloride 1,000 mls @ 100 mls/hr 08/12/23 04:24 08/12/23 05:02
Nss IV 1,000 mls
.Q10H LILLIAN Administration
Potassium Chloride 40 meq/ 270 mls @ 67.5 mls/hr 08/12/23 08:31 08/12/23 09:19
Dextrose IV 08/12/23 12:30 270 mls
NOW STA Administration
Metoprolol Succinate 100 mg 08/12/23 08:00 08/12/23 09:17
Metoprolol 100 Mg Extended Release Tablet PO 09/09/23 07:59 100 mg
DAILY LILLIAN Administration
Ondansetron HCl 4 mg 08/12/23 08:31
Ondansetron 4 Mg/2 Ml Vial IV 09/09/23 08:30
Q6HPRN PRN
NAUSEA/VOMITING
Sodium Chloride 0 flush 08/12/23 05:00
Sodium Chloride 0.9% (Flush) Syringe IV 09/09/23 04:59
PER PROTOCOL LILLIAN
Home Medications
Medication Instructions Recorded
cholecalciferol (vitamin D3) 25 1,000 units PO DAILY Supplement 02/17/21
mcg (1,000 unit) tablet
metoprolol succinate 100 mg 100 mg PO DAILY Heart 02/17/21
tablet,extended release 24 hr disease/condition
rosuvastatin 5 mg tablet 5 mg PO QPM High cholesterol 08/22/21
acetaminophen 325 mg tablet 650 mg PO Q6HPRN PRN mild pain/ 08/25/21
fever>100.5F
escitalopram oxalate 5 mg tablet 5 mg PO DAILY@1200 Depression 08/02/23
apixaban 2.5 mg tablet (Eliquis) 2.5 mg PO BID 30 days #60 tabs 08/08/23
cephalexin 500 mg capsule 500 mg PO BID #4 caps 08/08/23
diltiazem HCl 180 mg 360 mg PO DAILY 30 days #60 caps 08/08/23
capsule,extended release 24 hr
Vital Signs and Labs
-
Vital Signs and Labs:
Vital Signs
Temp Pulse Resp BP Pulse Ox
36.8 C 75 17 99/48 92
08/12/23 11:32 08/12/23 11:32 08/12/23 11:32 08/12/23 11:32 08/12/23 11:32
Lab Results
08/12/23 05:03
08/12/23 05:03
Sodium 130 mmol/L (135-145) L 08/12/23 05:03
Potassium 3.2 mmol/L (3.5-5.1) L 08/12/23 05:03
BUN 48 mg/dl (7-17) H 08/12/23 05:03
Glucose 85 mg/dl (70-99) 08/12/23 05:03
Calcium 9.7 mg/dl (8.4-10.2) 08/12/23 05:03
Home Medications
-
Home Medications
cholecalciferol (vitamin D3) 25 mcg (1,000 unit) tablet 1,000 units PO DAILY Supplement 02/17/21
metoprolol succinate 100 mg tablet,extended release 24 hr 100 mg PO DAILY Heart disease/condition 02/17/21
rosuvastatin 5 mg tablet 5 mg PO QPM High cholesterol 08/22/21
acetaminophen 325 mg tablet 650 mg PO Q6HPRN PRN mild pain/ fever>100.5F 08/25/21
escitalopram oxalate 5 mg tablet 5 mg PO DAILY@1200 Depression 08/02/23
apixaban 2.5 mg tablet (Eliquis) 2.5 mg PO BID 30 days #60 tabs 08/08/23
cephalexin 500 mg capsule 500 mg PO BID #4 caps 08/08/23
diltiazem HCl 180 mg capsule,extended release 24 hr 360 mg PO DAILY 30 days #60 caps 08/08/23
Medications
-
Medications:
Generic Name Dose Route Start Last Admin
Trade Name Freq PRN Reason Stop Dose Admin
Acetaminophen 650 mg 08/12/23 04:24
Acetaminophen 325 Mg Tablet PO 09/09/23 04:23
Q4HPRN PRN
mild pain/MCCLAIN/temp> 100.4F
Ceftriaxone Sodium 1,000 mg 08/12/23 14:00
Ceftriaxone 1000 Mg / 10 Ml Vial IV
Q24H LILLIAN
Diltiazem HCl 360 mg 08/12/23 08:00 08/12/23 09:17
Diltiazem 180 Mg Extended Release (24 H) Capsule PO 09/09/23 07:59 360 mg
DAILY LILLIAN Administration
Escitalopram Oxalate 5 mg 08/12/23 12:00 08/12/23 12:20
Escitalopram 5 Mg Tablet PO 09/09/23 11:59 5 mg
DAILY@1200 LILLIAN Administration
Sodium Chloride 1,000 mls @ 100 mls/hr 08/12/23 04:24 08/12/23 05:02
Nss IV 1,000 mls
.Q10H LILLIAN Administration
Metronidazole 100 mls @ 100 mls/hr 08/12/23 14:00
Flagyl 500 Mg IV
Q8H LILLIAN
Metoprolol Succinate 100 mg 08/12/23 08:00 08/12/23 09:17
Metoprolol 100 Mg Extended Release Tablet PO 09/09/23 07:59 100 mg
DAILY LILLIAN Administration
Ondansetron HCl 4 mg 08/12/23 08:31
Ondansetron 4 Mg/2 Ml Vial IV 09/09/23 08:30
Q6HPRN PRN
NAUSEA/VOMITING
Sodium Chloride 0 flush 08/12/23 05:00
Sodium Chloride 0.9% (Flush) Syringe IV 09/09/23 04:59
PER PROTOCOL LILLIAN
Sterile Water 10 ml 08/12/23 14:00
Sterile Water For Injection 10 Ml Vial IV 09/09/23 13:59
Q24H LILLIAN
[2023-08-12 11:28] LABS: CEA 2.88 ng/ml
--- NOTE | 2023-08-12 12:01 | W.PN.UPDATE ---
Update Note
Progress Note Update
Patient refused NG tube, patient stable, has not had any further episodes of vomiting. Still no bowel movements
Surgery involved
Holding Eliquis for possible intervention.
Tumor markers
CT head for altered mental status, concern for metastasis, stroke
Neurology consulted
Repeat UA, straight cath - start abx
Electrolyte repletion
IVF, monitor Scr
6
[2023-08-12] MEDS: LEXAPRO 5 MG PO (12:20)
[2023-08-12] MEDS: NSS IV (14:56)
[2023-08-12] MEDS: FLAGYL 500 MG 100 IV ×2 (14:59→21:34)
[2023-08-12] MEDS: ROCEPHIN 1000 MG IV (15:00)
[2023-08-12] MEDS: STERILE WATER FOR INJECTION 10 ML IV (15:01)
[2023-08-12 15:14] LABS: Vitamin B12 598 pg/ml (239-931)
--- NOTE | 2023-08-12 17:15 | CM ---
Initial assessment completed with medical records. Patient is sleeping. Patient at baseline is forgetful and confused. She lives with her son in a one story home with 3 steps to enter, she requires assistance with ADL's, uses a RW for ambulation.
PT has recommended SNF after discharge. Will contact son for PCP and Pharmacy.
[2023-08-12 19:17] LABS: CA 125 265 U/mL (0-35)
[2023-08-13] VITALS (7 sets, daily range): BP systolic 87–105; BP diastolic 39–66; PULSE 72; O2SAT 96
[2023-08-13] MEDS: FLAGYL 500 MG 100 IV (06:01)
[2023-08-13 08:26] LABS: Hematocrit 25.4 % (37.0-47.0); Hemoglobin 8.8 g/dL (12.0-16.0); Mean Corp Hgb Conc. 34.6 g/dL (33.0-37.0); Mean Corpuscular Hgb 31.4 pg (27.0-31.0); Mean Corpuscular Volume 90.7 fL (81.0-99.0); Platelet Count 376 10^3/uL (130-400); Red Cell Dist. Width 13.6 % (11.5-14.5); White Blood Cell Count 13.8 10^3/uL (4.8-10.8)
[2023-08-13 08:49] LABS: ALT (SGPT) 12 U/L (0-35); AST (SGOT) 20 U/L (14-36); Albumin 1.6 g/dl (3.5-5.0); Alkaline Phosphatase 37 U/L (38-126); Blood Urea Nitrogen 53 mg/dl (7-17); Calcium 7.7 mg/dl (8.4-10.2); Carbon Dioxide 13 mmol/L (22-30); Chloride 109 mmol/L (98-107); Estimated Creatinine Clearance 44 ml/min; Glucose 85 mg/dl (70-99); Potassium 3.6 mmol/L (3.5-5.1); Sodium 134 mmol/L (135-145); Total Bilirubin 0.4 mg/dl (0.2-1.3); Total Protein 3.3 g/dl (6.3-8.2); eGFR > 60.00
--- NOTE | 2023-08-13 09:00 | W.PN.GS2 ---
Addendum entered and electronically signed by Lio Jordan MD 08/13/23 09:26:
Patient seen and examined with nurse practitioner.
Remains confused this a.m., oriented to self but not location although she seemed understand that she is having bowel problems.
Denies abdominal pain. Denies nausea. No vomiting recorded.
AFVSS
ABD: Soft and slightly distended. Completely nontender on examination. No rebound rigidity or guarding.
Assessment/plan: 78-year-old female with suspected malignant small bowel obstruction as CA125 elevated at 265. CT imaging suggestive of peritoneal/omental disease and small bowel transition point right hemiabdomen with surrounding malignancy.
Advised patient's daughter of suspicion for malignant obstruction. Appears to be partial but may be high-grade obstruction.
Patient's daughter states that her mother/she would likely not want any invasive surgical procedures that would not be curative or allow for full recovery.
Based on this we will obtain a small bowel follow-through on Tuesday to get better assessment of the degree of small bowel obstruction
Patient's daughter indicates she would likely lean towards palliative/hospice care if high-grade small bowel obstruction confirmed
Will follow
Okay for sips of clears for comfort
Original Note:
Today's Communication / Plan
-
NPO/IVF
Hold Eliquis
Assessment / Plan
-
78 yo female with h/o paf on Eliquis (LD 08/11/23 at 8pm), and recent admit for SBO (08/02-08/08) now presenting with syncope and ?n/v with abdominal pain. CT abd/pelvis is consistent with recurrent SBO, unclear etiology. Possibly adhesions vs
more likely malignancy. CT somewhat limited given lack of contrast.
CA 125 significantly elevated, concern for ovarian malignancy as etiology.
MS changes noted from prior presentation, neurology following. No acute CVA on imaging.
Respiratory insufficiency: On o2
Metabolic acidosis: IVF being managed by medical team
AFVSS
Plan:
Keep NPO with sips of clears, place NGT if vomiting or intractable nausea
Recommend sole conditioner/onc consult
IVF as per primary team
SBFT tentatively on Tuesday for operative decision making
Continue to hold Eliquis; as she may need operative intervention this admission
Medical management as per primary team
Patient's daughter updated with findings/plan via telephone
Subjective Data
-
Date of Service: August 13, 2023
Patient seen and examined at bedside with Dr. Jordan. Confused. Dry mouth making communication difficult. Reports some abdominal pain and nausea.
Objective Data
-
Intake and Output
08/12/23 08/13/23 08/14/23
06:59 06:59 06:59
Intake Total 0 / 0 2230 / 2230
Output Total 225 / 225
Balance 0 / 0 2004
Intake:
Oral fluids 0 / 0 160 / 160
IV fluids (Total) 0 / 0 1500 / 1500
IV piggybacks 0 / 0 570 / 570
Output:
Straight cath output 225 / 225
Other:
How many times incontinent 1
SMALL amount urine
How many times incontinent 2
MODERATE amount urine
How many times incontinent 1
SATURATED amount urine
Vital Signs
Temp Pulse Resp BP Pulse Ox
97.6 F 79 18 105/48 94
08/13/23 07:45 08/13/23 07:45 08/13/23 07:45 08/13/23 07:45 08/13/23 07:45
Lab Results
08/13/23 07:00
Calcium 7.7 mg/dl (8.4-10.2) L D 08/13/23 07:00
Magnesium 1.7 mg/dl (1.6-2.3) 08/12/23 05:03
Total Bilirubin 0.4 mg/dl (0.2-1.3) 08/13/23 07:00
AST 20 U/L (14-36) 08/13/23 07:00
ALT 12 U/L (0-35) 08/13/23 07:00
Alkaline Phosphatase 37 U/L (38-126) L 08/13/23 07:00
Total Protein 3.3 g/dl (6.3-8.2) L D 08/13/23 07:00
Albumin 1.6 g/dl (3.5-5.0) L 08/13/23 07:00
Physical Exam
-
Anxious, Oriented x2, awake
ABD soft, minimal distention, grossly NT
[2023-08-13] MEDS: LR 1000 IV (09:22)
[2023-08-13] MEDS: CARDIZEM CD 360 MG PO (09:23)
[2023-08-13] MEDS: TOPROL XL 100 MG PO (09:26)
[2023-08-13 09:47] LABS: Hematocrit 24.4 % (37.0-47.0); Hemoglobin 8.5 g/dL (12.0-16.0); Mean Corp Hgb Conc. 34.8 g/dL (33.0-37.0); Mean Corpuscular Hgb 31.8 pg (27.0-31.0); Mean Corpuscular Volume 91.4 fL (81.0-99.0); Mean Platelet Volume 10.2 fL (7.4-10.4); Platelet Count 379 10^3/uL (130-400); Red Blood Cell Count 2.67 10^6/uL (4.20-5.40); Red Cell Dist. Width 13.7 % (11.5-14.5); White Blood Cell Count 14.1 10^3/uL (4.8-10.8)
--- NOTE | 2023-08-13 10:08 | W.PN.NEURO.1 ---
Today's Communication / Plan
-
.
Subjective/Objective
Subjective Data
Date of Service: August 13, 2023
CC: none
24h events: normotensive, afebrile. Ms. Josue reports no complains.
Brain MRI showed no acute infarcts.
Vit [id number].
PMH: PA A-fib, long QT syndrome, HTN, DLP, E.Coli UTI(08/03/2023), ambulatory dysfunction
PSH: R SHERON, C section� �
SH: former smoker, retired church secretary
FH: Noncontributory
All: NKDA
ROS: Limited due to encephalopathy.� Negative for headache, chest pain, change in vision or strength
�
�
General: Cachectic, in no acute distress.
Cardio: Regular rate and rhythm . Extremities are without cyanosis or edema.
Neuro:
Mental Status: Awake, oriented to self, not to place. ' , did not know the month. Poor attention. Nonfluent.� No hemineglect.
Cranial Nerves: . Pupils are equally round and reactive to light.� EOMs full. BTT BL.� No ptosis.� No nystagmus.� V1-V3 intact to light touch and pinprick bilaterally, symmetric.� Face symmetric.� Preserved hearing AU.� Mild to moderate dysarthria.
Motor:� � � � UE-anti gravity, LE-drifts to the bed in <5 secs, min movements in bedplane, b/l foot drop?
Reflexes:� � � �+ grasp BL
Sensory: � Unable due to poor attention
Coordination: No tremors, clonic movements.
Gait: � � � � � deferred
Assessment and Plan:
�
I. Multifactorial encephalopathy (neurodegenerative, metabolic, infectious), clinically improved.
II. PA AFib
III. Ambulatory dysfunction
�
-Aspiration precautions.Delirium precautions
-Avoid RAG SHREDDER suppressants and anticholinergic medications.
-DVT prophylaxis.
-OP neurology follow up in 2-3 weeks
�
I personally reviewed all radiology and labs along with past medical records pertinent to current medical problems. Total time spent in patient care is 35 minutes.
�
Thank you for allowing us to participate in the care of this patient. Please do not hesitate to contact us with any questions or concerns.
�
Objective Data
Vital Signs
Temp Pulse Resp BP Pulse Ox
36.4 C 79 18 105/48 94
08/13/23 07:45 08/13/23 09:26 08/13/23 07:45 08/13/23 09:26 08/13/23 07:45
Lab Results
08/13/23 07:00
Sodium 134 mmol/L (135-145) L 08/13/23 07:00
Potassium 3.6 mmol/L (3.5-5.1) 08/13/23 07:00
BUN 53 mg/dl (7-17) H 08/13/23 07:00
Glucose 85 mg/dl (70-99) 08/13/23 07:00
Calcium 7.7 mg/dl (8.4-10.2) L D 08/13/23 07:00
Vitamin B12 598 pg/ml (239-931) 08/12/23 13:58
Patient Allergies
No Known Allergies Allergy (Verified 08/11/23 21:04)
--- NOTE | 2023-08-13 11:52 | CM ---
CM following re: discharge planning.
Reviewed pt's chart.
According to MD pt and her family agree with hospice care.
Pt and her family are aware, a list of hospice vendors provided, hospice preferred. Pt referred to hospice.
CM is available for emotional support.
D/C plan: hospice with hospice.
--- NOTE | 2023-08-13 11:59 | HOSPNOTE ---
Referral received. Spoke to patients daughter Chaz who is up from [place]. She reports that patient was living with her brother Vincent however she can not even discuss hospice with him at this time and returning to live with him would not
be an option. Josefina asked about GIP, reviewed that patient does not meet GIP criteria. Reviewed other option would be SNF placement. Reviewed SNF in the area, Josefina is interested in [facility] [place]. She stated that she wants to
stay with [facility]. Attending updated. CM updated and will begin the referral process. Hospice will follow.
--- NOTE | 2023-08-13 12:38 | W.PN.HOSP.TC ---
Today's Communication/Plan
-
hospice consultation
comfort measures
Assessment / Plan
Assessment / Plan
Physical Exam
General: Other (frail appearing, conversant but confused )
HEENT: PERRLA
Respiratory: Clear; No Wheezes
Cardiac: S1/S2 and Regular Rhythm
GI: Other (distended, non-tender )
Musculoskeletal: No Edema
Skin: Warm and Dry; No Rash
Neuro: Awake, Alert and Other (not able to give me a coherent history )
Psych: Confused
High grade small bowel obstruction
-Refuse NG tube
� I suspect this is most likely secondary to metastatic disease
� Surgery on board, was planning for small bowel follow-through although after discussion with daughter, goals of care will transition to comfort/hospice
� Desired conservative management regardless
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
-this wasn't mentioned on last CT
-patient too confused to have meaningful conversation about this finding with her - team to discuss with family tomorrow
-Planning for Hospice, will hold on biopsy due to this
-IF revisiting aggressive care, can f/u with oncology outpatient
SIRS 2/2 obstruction and dehydration versus sepsis
Lactic Acidosis
-unclear if presentation 2/2 SIRS and dehydration versus sepsis; i favor due to malignancy and SBO
-Can dc abx upon hospice
-IVF as above; switch to LR to avoid non anion gap metabolic acidosis
Hypovolemic Hyponatremia
-IVF
-monitor Na
Acute Kidney Injury
-in setting of obstruction and dehydration
-IVF
-resolving
Paroxysmal Afib
Hx afib with RVR
-can resume as tolerated upon dcif desired by family on hospice
DVT PPx
SCD
DNR/DNI; Hospice consultation
Total time spent on today's encounter was 50 minutes which included time spent in counseling the patient/family regarding diagnosis and treatment plan as listed above, goals of care, and symptom management. Case was discussed with nursing staff,
specialists, and care coordinators/case management. All labs and imaging personally reviewed by me. Remainder the time spent in detailed review of previous records, lab data, imaging, and other medical provider documentation.
Anticipated Discharge: 24 - 48 hours
Subjective/Interval History
-
Date of Service: August 13, 2023
Plan for small bowel follow-through although after discussion with daughter, want to approach hospice level of care
Objective Data
-
Labs:
Laboratory Results
08/13/23 08/13/23
07:00 09:37
WBC 13.8 H 14.1 H
Hgb 8.8 L 8.5 L
Hct 25.4 L 24.4 L
Plt Count 376 379
Sodium 134 L
Potassium 3.6
Chloride 109 H
Carbon Dioxide 13 L*
BUN 53 H
Creatinine 0.8
Glucose 85
Calcium 7.7 L D
Total Bilirubin 0.4
AST 20
ALT 12
Alkaline Phosphatase 37 L
Vital Signs:
Vital Signs
Temp Pulse Resp BP Pulse Ox
97.3 F 65 20 94/39 95
08/13/23 11:15 08/13/23 11:15 08/13/23 11:15 08/13/23 11:15 08/13/23 11:15
I&O
08/12/23 08/13/23 08/14/23
06:59 06:59 06:59
Intake Total 0 / 0 2230 / 2230
Output Total 225 / 225
Balance 0 / 0 2004
Review of Systems
-
History Source: Patient
All other systems: Reviewed and negative
Data Reviewed
-
Diagnostic Radiology: Image personally visualized and interpreted and Report Reviewed by me
CT Scan: Image personally visualized and interpreted and Report Reviewed by me
MRI: Image personally visualized and interpreted and Report Reviewed by me
Labs: Labs Reviewed by me
[2023-08-13] MEDS: LEXAPRO PO (12:57)
[2023-08-13] MEDS: NSS (PRESERVATIVE FREE) 0.5 ML IV ×2 (13:32→20:49)
[2023-08-13] MEDS: ATIVAN 1 MG IV ×2 (13:32→20:47)
--- NOTE | 2023-08-13 13:57 | HOSPNOTE ---
Addendum: CM met with family and they have decided to seek assisted living with memory care near [place] and will go with preferred hospice. CM stated that family is aware of going with preferred hospice at facility. Attending notified. Hospice will
sign off at this time.
[2023-08-13] MEDS: FLAGYL 500 MG IV ×2 (14:37→21:41)
[2023-08-13] MEDS: ROCEPHIN IV (14:37)
[2023-08-13] MEDS: STERILE WATER FOR INJECTION IV (14:37)
--- NOTE | 2023-08-13 15:04 | CM ---
CM following re: discharge planning.
Reviewed pt's chart, met with pt and had a long meeting with pt;'s daughter Josefina [phone].
Hospice consult is noted. Discussed it with pt's son and daughter, hospice preferred and family is looking for inpatient hospice.
A referral to hospice made. Per patient relations liaison, pt does not meet criteria for inpatient hospice and pt will need to be placed to a alf with hospice care.
CM had a long meeting with pt's daughter Josefina and son Vincent, home hospice options discussed: home with hospice, [facility] memory care with hospice or longterm with hospice care. Both pt's daughter and pt's son had no idea that they will need to
pay for room and board in a alf. Information provided.
Pt's daughter stated that bringing pt home with hospice care is not an options. [facility] memory care vs SNF with hospice care options discussed and both pt's daughter and pt's son preferred memory care with hospice care. per daughter and son pt has
financial resources to pay privately for room and board and they preferred memory care.
A list of ALFs with memory care provided to pt's daughter and son. [facility] preferred. CM spoke to [facility] liaison Pj [phone] and she stated she will work on pt's admission to [facility] memory care facility and it
will be as early as Tuesday. Requested pt's clinical faxed to [facility] at [phone]. Per Pj they will use hospice care provider that is contracted with [facility]. Awaiting for determination.
D/C plan:L [facility] memory care with hospice care.
CM will follow with discharge plan updates as hospitalization progresses
[2023-08-13] MEDS: FLUSH (NSS) 2 FLUSH IV (20:51)
[2023-08-14] MEDS: FLAGYL 500 MG IV (05:01)
[2023-08-14] MEDS: CARDIZEM CD PO (08:14)
[2023-08-14] MEDS: TOPROL XL PO (08:14)
[2023-08-14 08:21] VITALS: BP 76/57
[2023-08-14] MEDS: MORPHINE SULFATE 1 MG IV ×3 (09:27→21:13)
--- NOTE | 2023-08-14 09:33 | W.PN.SURGUPD ---
Surgical Update
Surgical Update
pt seen and examined
d/w hospitalist and pt daughter yesterday
reviewing notes looks like patient transitioning to hospice care
no nausea/vomiting
Xray 08/14 with less SB distention
ABD: softly protuberant, some tympany, nontender
A/P: 78 y/o female with probable partial SBO d/t presumed malignant obstruction (peritoneal/omental metastasis) for which will be treating palliatively/hospice care
patient has been able to tolerate NGT out - likely will tolerate a degree of liquid diet, can allow PO intake as tolerated understanding obstructive symptoms may return with solid foods
signing off, please call if can be of further assistance with care
-d/w hospitalist 08/13 - agree would only get further imaging/testing if patient and her family were considering treatment rather than hospice care
[2023-08-14 11:47] LABS: CA 19-9 5 U/mL (<=35)
--- NOTE | 2023-08-14 12:03 | W.PN.HOSP.TC ---
Today's Communication/Plan
-
comfort care
Assessment / Plan
Assessment / Plan
Physical Exam
General: Other (frail appearing, conversant but confused )
HEENT: PERRLA
Respiratory: Clear; No Wheezes
Cardiac: S1/S2 and Regular Rhythm
GI: Other (distended, non-tender )
Musculoskeletal: No Edema
Skin: Warm and Dry; No Rash
Neuro: Awake, Alert and Other (not able to give me a coherent history )
Psych: Confused
High grade small bowel obstruction
-Refuse NG tube
� I suspect this is most likely secondary to metastatic disease
� Surgery on board, was planning for small bowel follow-through although after discussion with daughter, goals of care will transition to comfort/hospice
� Desired conservative management regardless
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
-this wasn't mentioned on last CT
-patient too confused to have meaningful conversation about this finding with her - team to discuss with family tomorrow
-Planning for Hospice, will hold on biopsy due to this
-IF revisiting aggressive care, can f/u with oncology outpatient
SIRS 2/2 obstruction and dehydration versus sepsis
Lactic Acidosis
-unclear if presentation 2/2 SIRS and dehydration versus sepsis; i favor due to malignancy and SBO
-Can dc abx upon hospice
Hypovolemic Hyponatremia
Acute Kidney Injury
-in setting of obstruction and dehydration
-IVF
-resolving
Paroxysmal Afib
Hx afib with RVR
DVT PPx
SCD
DNR/DNI; Hospice consultation
Dispo: needs placement for hospice
Anticipated Discharge: 24 - 48 hours
Subjective/Interval History
-
Date of Service: August 14, 2023
cont comfort care
Objective Data
-
Vital Signs:
Vital Signs
Temp Pulse Resp BP Pulse Ox
97.6 F 59 28 76/57 92
08/14/23 08:21 08/14/23 08:21 08/14/23 09:19 08/14/23 08:21 08/14/23 08:21
I&O
08/13/23 08/14/23 08/15/23
06:59 06:59 06:59
Intake Total 2230 / 2230 1100 / 1100
Output Total 225 / 225
Balance 2004 1100 / 1100
Review of Systems
-
History Source: Patient
All other systems: Reviewed and negative
Data Reviewed
-
Diagnostic Radiology: Image personally visualized and interpreted and Report Reviewed by me
CT Scan: Image personally visualized and interpreted and Report Reviewed by me
MRI: Image personally visualized and interpreted and Report Reviewed by me
Labs: Labs Reviewed by me
[2023-08-14] MEDS: LEXAPRO PO (12:32)
[2023-08-14] MEDS: ATIVAN 1 MG IV ×3 (16:46→23:21)
[2023-08-14] MEDS: NSS (PRESERVATIVE FREE) 0.5 ML IV ×3 (16:46→23:21)
[2023-08-14 23:28] VITALS: BP 90/36
[2023-08-15] MEDS: MORPHINE SULFATE 1 MG IV ×4 (00:15→04:17)
[2023-08-15] MEDS: ATIVAN 1 MG IV ×4 (02:52→11:53)
[2023-08-15] MEDS: NSS (PRESERVATIVE FREE) 0.5 ML IV ×4 (02:53→11:52)
--- NOTE | 2023-08-15 04:49 | W.PN.UPDATE ---
Update Note
Progress Note Update
Nursing reports change in patient's breathing. Appears to be the beginning of brenda grider. I notified her daughter and she will be coming in.
[2023-08-15] MEDS: MORPHINE SULFATE 2 MG IV ×4 (06:02→11:52)
[2023-08-15 07:07] VITALS: BP 116/43
[2023-08-15] MEDS: TOPROL XL PO (07:44)
[2023-08-15] MEDS: CARDIZEM CD PO (07:44)
--- NOTE | 2023-08-15 08:18 | W.PN.HOSP.TC ---
Today's Communication/Plan
-
see bold
Assessment / Plan
Assessment / Plan
Gen: Mild respiratory distress, appears chronically ill
CV: RRR, +S1/S2, no m/r/g.
Resp: aside from transmission of upper airway sounds CTAB anteriorly.
Abd: +BS, soft, NT, ND
Neuro: unresponsive
High grade small bowel obstruction:
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
-Refused NG tube
-seen by surgery, now transitioned to comfort care/hospice
-SIRS and lactic acidosis due to high-grade small bowel obstruction and malignancy, POA
-due to overnight morphine requirements overnight, transition to morphine infusion. Hospice made aware.
Other problems:
Hypovolemic Hyponatremia: Improved with IVFs
DOYLE: due to dehydration and SBO, resolved with IVFs
Paroxysmal Afib
Family updated at bedside.
SCD
DNR/DNI
Anticipated Discharge: Today
Subjective/Interval History
-
Date of Service: August 15, 2023
patient unresponsive
Objective Data
-
Vital Signs:
Vital Signs
Temp Pulse Resp BP Pulse Ox
97.8 F 73 20 90/36 96
08/14/23 23:28 08/14/23 23:28 08/14/23 23:28 08/14/23 23:28 08/14/23 23:28
I&O
08/14/23 08/15/23 08/16/23
06:59 06:59 06:59
Intake Total 1100 / 1100
Balance 1100 / 1100
--- NOTE | 2023-08-15 11:47 | HOSPNOTE ---
Patient will be admitted inpatient hospice. Family is at bedside. Attending aware and I will inform case management. Admissions was called to begin the hospice chart. Hospice was explained and the philosophy and the family is in agreement.
--- NOTE | 2023-08-15 12:05 | PTCARENOTE ---
Pt admitted to inpatient hospice. See flipped chart for documentation.
--- NOTE | 2023-08-15 12:07 | CM ---
Patient has been discharged from inpatient medical status to inpatient hospice.
--- NOTE | 2023-08-18 17:49 | W.DCSUMMARY ---
Discharge Summary
Discharge Data
Date of Admission: 08/12/23
Date of Discharge: 08/15/23
-
Pending Results: No
Hospital Course
Primary diagnoses:
High grade small bowel obstruction
Systemic inflammatory response syndrome
Secondary diagnoses:
Lactic acidosis
Hypovolemic Hyponatremia
Acute kidney injury
Paroxysmal atrial fibrillation
Consultants:
General surgery
Neurology
Imaging:
CT A/P 08/11/23:
1.� High-grade distal small bowel obstruction likely secondary to peritoneal carcinomatosis.
2. Gastric distention with evidence for gastroesophageal reflux.
3. Stable moderate left hydroureteronephrosis.
4. Small bilateral pleural effusions, new.
Brain MRI: There is no acute intracranial process. Moderate volume loss. Moderate to severe leukoaraiosis. Severely limited examination due to patient inability to hold still. A subtle abnormality could easily be missed.
Minimal right maxillary sinus disease and mild bilateral mastoiditis.
Hospital course: 78-year-old female who presented with chief complaint of syncope as outlined in the H&P done on admission. On admission the patient was unable to provide a good history. She had recently been in the hospital for August 02
August 08 for small bowel obstruction. CT scan of the abdomen pelvis above and notable for high-grade distal small bowel obstruction likely secondary to peritoneal carcinomatosis. The patient refused an NG tube. Patient was seen in consultation
by surgery and the patient and the patient's family decided against surgical intervention. The patient was transitioned to comfort care and discharged to inpatient hospice.
Discharge Plan
-
Patient Disposition: Hospice - Inpatient
Referrals:
Paulo Mckeon DO [Family Provider] -
Prescriptions:
No Action
metoprolol succinate 100 MG tablet extended release 24 hr
100 mg PO DAILY
cholecalciferol (vitamin D3) 1,000 UNITS tablet
1,000 units PO DAILY
rosuvastatin 5 MG tablet
5 mg PO QPM
Patient Comments:
08/02/2023: pt states she stopped taking this about a week ago, pt did not explain why.
acetaminophen 325 MG tablet
650 mg PO Q6HPRN PRN (Reason: mild pain/ fever>100.5F) 0RF
escitalopram oxalate 5 mg tablet
5 mg PO DAILY@1200
diltiazem HCl 180 mg Capsule,Extended Release 24hr
360 mg PO DAILY 30 Days Qty: 60 0RF
cephalexin 500 mg capsule
500 mg PO BID
Eliquis 2.5 mg tablet
2.5 mg PO BID
Discharge Orders:
Discharge Patient (As Directed); Ordered 08/15/23
Ordered By: Howard Alonso
Discharge Date and Time
Discharge Date/Time: 08/15/23 11:55
== END 2023-08-15 11:55 | disposition hospice, inpatient (51) | DRG 374 ==
LOC: 2 NORTH 03:02
PROVIDERS: Emergency Medicine; Internal Medicine; Registered Nurse; ADMITTING PHYSICIAN Student in an Organized Health Care Education/Training Program; ATTENDING PHYSICIAN Internal Medicine; CONSULT PHYSICIAN Psychiatry & Neurology Neurology; EMERGENCY PHYSICIAN Emergency Medicine; FAMILY PHYSICIAN Family Medicine; OTHER PHYSICIAN Surgery
DX: C78.6 Secondary malignant neoplasm of retroperitoneum and peritoneum (principal); G93.41 Metabolic encephalopathy; E87.1 Hypo-osmolality and hyponatremia; N17.9 Acute kidney failure, unspecified; E87.20 Acidosis, unspecified; R65.10 Systemic inflammatory response syndrome (SIRS) of non-infectious origin without acute organ dysfunction; I48.0 Paroxysmal atrial fibrillation; I10 Essential (primary) hypertension; E78.00 Pure hypercholesterolemia, unspecified; E86.1 Hypovolemia; Z66 Do not resuscitate; E86.0 Dehydration; Z51.5 Encounter for palliative care; Z79.01 Long term (current) use of anticoagulants; Z87.891 Personal history of nicotine dependence
CPT/HCPCS: 70450; 70551; 71045; 74018; 74176; 80048; 80053; 81003; 81015; 82105; 82378; 82607; 83605; 83735; 85025; 85027; 86301; 86304; 87040; 87086; 93005; 96361; 96365; 97163; 97167; 97530; 99285

== ENCOUNTER 2023-08-15 12:00 | Inpatient (IN) | payer OTHER, SELFPAY ==
--- NOTE | 2023-08-15 12:23 | HOSPNOTE ---
Patient has been admitted into Hospice services. She has mottling from her feet to hips,hands and face are cyanotic and respirations are shallow. Patient is unresponsive to voice and repositioning. Morphine and lorazepam were given during this
visit. No indication of pain or agitation.She will remain GIP due to needing freq skilled assessments for management of pain and titration of medication.
[2023-08-15] MEDS: MORPHINE 100 IV (14:51)
--- NOTE | 2023-08-15 16:32 | CM ---
Inpatient Hospice. Will remain available if hospice or family need assistance.
[2023-08-15 17:41] VITALS: BMI 21.1
[2023-08-15] MEDS: MORPHINE SULFATE 2 MG IV (22:45)
[2023-08-15 23:29] VITALS: BP 61/43
[2023-08-16] MEDS: MORPHINE SULFATE 2 MG IV ×4 (01:56→05:54)
[2023-08-16] MEDS: NSS (PRESERVATIVE FREE) 0.5 ML IV (04:14)
[2023-08-16] MEDS: ATIVAN 1 MG IV (04:14)
[2023-08-16] MEDS: ROBINUL 0.200000000000000011 MG IV (05:55)
[2023-08-16 07:00] VITALS: BP 53/32
--- NOTE | 2023-08-16 08:00 | PTCARENOTE ---
Family called RN to beside at 0800, pt noted to have no heart tones or respirations. MD made aware. [facility] called. Post-mortem care complete, pt's jewelry sent home with family.
--- NOTE | 2023-08-16 08:33 | W.PN.DEATH ---
Pronouncement of
-
Called to see patient to pronounce.
No spontaneous heart tones or respirations noted.
Patient not responsive to verbal stimuli.
Patient is pronounced .
Time of : 08:00
Date of : 08/16/23
Cause of : small bowel obstruction
Family Notified: Yes (ROSALEE RUBI updated over the phone)
--- NOTE | 2023-08-16 13:34 | CM ---
Patient at 8:00am on this date.
== END 2023-08-16 10:03 | disposition expired | DRG 390 ==
LOC: 2 NORTH 12:00
PROVIDERS: ADMITTING PHYSICIAN Internal Medicine
DX: K56.609 Unspecified intestinal obstruction, unspecified as to partial versus complete obstruction (principal)